=== PATIENT | male | born 1940 | race African-American/Black ===

== ENCOUNTER → 2016-07-09 | Outpatient (CLI) | payer MEDICARE ==
[2016-07-12 09:13] LABS: ALANINE AMINOTRANSFERASE 18 U/L (21-72); ALBUMIN 3.3 g/dL (3.5-5.0); ALKALINE PHOSPHATASE 66 U/L (38-126); ANION GAP 10 (5-19); ASPARTATE AMINO TRANSFERASE 16 U/L (17-59); BILIRUBIN,TOTAL 0.8 mg/dL (0.2-1.3); BLOOD UREA NITROGEN 16 mg/dL (7-20); CALCIUM 8.8 mg/dL (8.4-10.2); CARBON DIOXIDE 30 mmol/L (22-30); CHLORIDE 101 mmol/L (98-107); CHOLESTEROL 114.05 mg/dL (0-200); CREATININE RESULT 1.39 mg/dL (0.52-1.25); Direct HDL 64 mg/dL (>40); GLUCOSE 86 mg/dL (75-110); POTASSIUM 4.6 mmol/L (3.6-5.0); SODIUM 140.9 mmol/L (137-145); TOTAL PROTEIN 6.6 g/dL (6.3-8.2); TRIGLYCERIDES 56 mg/dL (<150)
[2016-07-12 09:27] LABS: DIRECT LDL < 30 mg/dL (<100)
== END ==
LOC: OD 09:38
PROVIDERS: ATTEND Physician Assistant Medical
DX: I10 Essential (primary) hypertension (principal); R06.02 Shortness of breath
CPT/HCPCS: 36415; 80053; 80061; 83880

== ENCOUNTER → 2016-07-26 | Outpatient (CLI) | payer MEDICARE ==
[2016-07-26 08:26] LABS: APPEARANCE,URINE CLOUDY; BILIRUBIN,URINE NEGATIVE (NEGATIVE); GLUCOSE, URINE NEGATIVE (NEGATIVE); KETONES,URINE NEGATIVE (NEGATIVE); LEUKOCYTE ESTERASE,URINE LARGE (NEGATIVE); NITRITE,URINE POSITIVE (NEGATIVE); PROTEIN,URINE 100 mg/dL (NEGATIVE); URINE SPECIFIC GRAVITY 1.009; UROBILINOGEN,URINE NEGATIVE mg/dL (<2.0)
[2016-07-26 08:38] LABS: HEMATOCRIT 45.7 % (37.9-51.0); HEMOGLOBIN 14.5 g/dL (13.5-17.0); HGB HCT DIFFERENCE -2.2; MEAN CORPUSCULAR HGB CONC 31.7 g/dL (32.0-36.0); MEAN CORPUSCULAR VOLUME 85 fl (80-97); RED BLOOD COUNT 5.37 10^6/uL (4.35-5.55); RED CELL DISTRIBUTION WIDTH 15.9 % (11.5-14.0); WHITE BLOOD COUNT 9.4 10^3/uL (4.0-10.5)
[2016-07-26 09:06] LABS: ANION GAP 11 (5-19); BLOOD UREA NITROGEN 15 mg/dL (7-20); CALCIUM 9.3 mg/dL (8.4-10.2); CARBON DIOXIDE 30 mmol/L (22-30); CHLORIDE 102 mmol/L (98-107); POTASSIUM 4.8 mmol/L (3.6-5.0); SODIUM 142.7 mmol/L (137-145)
[2016-07-26 09:08] LABS: GLUCOSE 82 mg/dL (75-110)
== END ==
LOC: OD 07:06
PROVIDERS: ATTEND Internal Medicine Nephrology
DX: I12.9 Hypertensive chronic kidney disease with stage 1 through stage 4 chronic kidney disease, or unspecified chronic kidney disease (principal); N18.3 Chronic kidney disease, stage 3 (moderate); I50.9 Heart failure, unspecified; R80.9 Proteinuria, unspecified; N39.0 Urinary tract infection, site not specified
CPT/HCPCS: 36415; 80048; 81001; 85027; 87086; 87088; 87186

== ENCOUNTER → 2016-09-13 | Outpatient (CLI) | payer MEDICARE | LOC: RAD 10:54 | PROVIDERS: ATTEND Family Medicine Geriatric Medicine | DX: J44.1 Chronic obstructive pulmonary disease with (acute) exacerbation (principal) | CPT/HCPCS: 71020 ==

== ENCOUNTER 2016-09-21 21:02 | Inpatient (IN) | payer MEDICARE ==
--- NOTE | 2016-09-21 21:10 | ER Document Report ---
ED Respiratory Problem - General Stated Complaint: DIFFICULTY BREATHING Time seen by provider: 21:10 Mode of Arrival: Medic Information source: Emergency Med Personnel TRAVEL OUTSIDE OF THE [place] IN LAST 30 DAYS: No - HPI Patient complains to provider of: Short of breath Onset: This evening Duration: Worse/persistent Quality of pain: No pain Severity: Severe Context: Hx COPD Short of Breath: Severe Chest pain/discomfort: Tightness Cough: Nonproductive EMS treatments: Bronchodilators, CPAP, Solumedrol Associated symptoms: Congestion, Cough, Difficulty breathing, Short of breath, Wheezing Similar symptoms previously: Yes Recently seen / treated by doctor: Yes Notes: Patient is a 76-year-old male who presents to the emergency room via EMS with respiratory distress that worsen, when EMS arrived patient was in distress, they placed him on Z-Brian and administered 2 albuterol treatments and IV Solu- Medrol, upon arrival patient reports feeling much better, he does report that he 's had difficulty breathing with shortness of breath over the past 2 weeks, he was recently evaluated by his primary care provider for this and his Lasix was increased from 40 mg once a day to 40 mg twice a day, which patient has been doing for the past few days, he denies a fever, denies chest pain, denies productive cough - Related Data Allergies/Adverse Reactions: No Known Allergies Allergy (Verified 05/08/15 11:11) Past Medical History - General Information source: Patient - Social History Smoking Status: Unknown if Ever Smoked Family History: Reviewed & Not Pertinent - Past Medical History Cardiac Medical History: Reports: Hx Congestive Heart Failure, Hx Coronary Artery Disease, Hx Heart Attack, Hx Hypercholesterolemia, Hx Hypertension Pulmonary Medical History: Denies: Hx Asthma, Hx Bronchitis, Hx COPD, Hx Pneumonia Neurological Medical History: Denies: Hx Cerebrovascular Accident, Hx Seizures Musculoskeltal Medical History: Denies Hx Arthritis Psychiatric Medical History: Denies: Hx Depression - Immunizations Hx Diphtheria, Pertussis, Tetanus Vaccination: Yes Review of Systems - Review of Systems Constitutional: No symptoms reported EENT: No symptoms reported Cardiovascular: See HPI Respiratory: See HPI Gastrointestinal: No symptoms reported Genitourinary: No symptoms reported Male Genitourinary: No symptoms reported Musculoskeletal: No symptoms reported Skin: No symptoms reported Hematologic/Lymphatic: No symptoms reported Neurological/Psychological: No symptoms reported -: Yes All other systems reviewed and negative Physical Exam - Vital signs Vitals: Resp Pulse Ox 22 H 99 09/21/16 21:04 09/21/16 21:04 Interpretation: Normal - General General appearance: Appears well, Alert - HEENT Head: Normocephalic, Atraumatic Eyes: Normal Pupils: PERRL - Respiratory Respiratory status: No respiratory distress Chest status: Nontender Breath sounds: Normal Chest palpation: Normal - Cardiovascular Rhythm: Regular Heart sounds: Normal auscultation Murmur: No - Abdominal Inspection: Normal Distension: No distension Bowel sounds: Normal Tenderness: Nontender Organomegaly: No organomegaly - Back Back: Normal, Nontender - Extremities General upper extremity: Normal inspection, Nontender, Normal color, Normal ROM , Normal temperature General lower extremity: Normal inspection, Nontender, Normal color, Normal ROM , Normal temperature, Normal weight bearing. No: Amy's sign - Neurological Neuro grossly intact: Yes Cognition: Normal Orientation: AAOx4 [place] Coma Scale Eye Opening: Spontaneous [place] Coma Scale Verbal: Oriented [place] Coma Scale Motor: Obeys Commands [place] Coma Scale Total: 15 Speech: Normal Motor strength normal: LUE, RUE, LLE, RLE Sensory: Normal - Psychological Associated symptoms: Normal affect, Normal mood - Skin Skin Temperature: Warm Skin Moisture: Dry Skin Color: Normal Course - Re-evaluation Re-evalutation: 09/22/16 04:[address] via EMS, however when that was removed his lungs were clear to auscultation any reported feeling much better, he was placed on 2 L of oxygen via nasal cannula and placed on the monitor, evaluation in the emergency room is consistent with bilateral pneumonia as patient has leukocytosis and difficulty breathing, findings suggestive of pneumonia on imaging, therefore he was discussed with the hospitalist who agrees to admit for further evaluation and treatment - Vital Signs Vital signs: Temp Pulse Resp BP Pulse Ox 97.3 F 82 16 99/76 L 95 09/22/16 01:47 09/22/16 02:29 09/22/16 02:29 09/22/16 01:47 09/22/16 02:29 - Laboratory Result Diagrams: 09/22/16 03:37 09/22/16 03:37 Laboratory results interpreted by me: 09/21/16 09/21/16 09/21/16 21:10 21:10 21:10 WBC 19.2 H MCH 26.6 L RDW 15.4 H Seg Neutrophils % 84.2 H Lymphocytes % 5.5 L Absolute Neutrophils 16.2 H Absolute Monocytes 1.9 H PT 17.0 H VBG pH Sodium 136.1 L Chloride 95 L Carbon Dioxide 32 H BUN 51 H Creatinine 1.65 H Est GFR ( Amer) 49 L Est GFR (Non-Af Amer) 41 L Glucose 159 H Direct Bilirubin 0.5 H NT-Pro-B Natriuret Pep Albumin 3.1 L 09/21/16 09/21/16 21:10 21:10 WBC MCH RDW Seg Neutrophils % Lymphocytes % Absolute Neutrophils Absolute Monocytes PT VBG pH 7.43 H Sodium Chloride Carbon Dioxide BUN Creatinine Est GFR ( Amer) Est GFR (Non-Af Amer) Glucose Direct Bilirubin NT-Pro-B Natriuret Pep 537 H Albumin - Diagnostic Test Radiology reviewed: Image reviewed, Reports reviewed - EKG Interpretation by Nj EKG shows normal: Sinus rhythm Rate: Normal Rhythm: NSR [place]/QRS: RBBB When compared to previous EKG there are: No significant change - Transfer of Care Care transferred to following provider: Dr. Maravilla Discharge - Discharge Clinical Impression: Pneumonia Qualifiers: Pneumonia type: due to unspecified organism Laterality: bilateral Lung location : lower lobe of lung Qualified Code(s): J18.9 - Pneumonia, unspecified organism Condition: Fair Disposition: ADMITTED INPATIENT Admitting Provider: Hospitalist Unit Admitted: Telemetry
[2016-09-21 21:20] LABS: ABSOLUTE BASOPHILS # (AUTO) 0.1 10^3/uL (0.0-0.2); ABSOLUTE LYMPHOCYTES (AUTO) 1.1 10^3/uL (0.5-4.7); ABSOLUTE MONOCYTES (AUTO) 1.9 10^3/uL (0.1-1.4); ABSOLUTE NEUT (AUTO) 16.2 10^3/uL (1.7-8.2); BASOPHILS % (AUTO) 0.3 % (0-2); EOSINOPHILS % (AUTO) 0.2 % (0-6); HEMATOCRIT 42.9 % (37.9-51.0); HEMOGLOBIN 13.9 g/dL (13.5-17.0); HGB HCT DIFFERENCE -1.2; LYMPHOCYTES % (AUTO) 5.5 % (13-45); MEAN CORPUSCULAR HEMOGLOBIN 26.6 pg (27.0-33.4); MEAN CORPUSCULAR HGB CONC 32.5 g/dL (32.0-36.0); MEAN CORPUSCULAR VOLUME 82 fl (80-97); MONOCYTES % (AUTO) 9.8 % (3-13); RED BLOOD COUNT 5.23 10^6/uL (4.35-5.55); RED CELL DISTRIBUTION WIDTH 15.4 % (11.5-14.0); SEGMENTED NEUTROPHILS % (AUTO) 84.2 % (42-78); WHITE BLOOD COUNT 19.2 10^3/uL (4.0-10.5)
[2016-09-21 21:22] LABS: VENOUS BLOOD BASE EXCESS 5.3 mmol/L; VENOUS BLOOD HCO3 30.5 mmol/L (20-32); VENOUS BLOOD PCO2 46.8 mmHg (35-63); VENOUS BLOOD PH 7.43 (7.30-7.42)
[2016-09-21 21:30] LABS: PARTIAL THROMBOPLASTIN TIME 31.6 SEC (23.5-35.8)
[2016-09-21 21:39] LABS: ALANINE AMINOTRANSFERASE 36 U/L (21-72); ALBUMIN 3.1 g/dL (3.5-5.0); ALKALINE PHOSPHATASE 71 U/L (38-126); ANION GAP 9 (5-19); ASPARTATE AMINO TRANSFERASE 24 U/L (17-59); BILIRUBIN,DIRECT 0.5 mg/dL (0.0-0.4); BILIRUBIN,TOTAL 1.3 mg/dL (0.2-1.3); BLOOD UREA NITROGEN 51 mg/dL (7-20); CALCIUM 8.8 mg/dL (8.4-10.2); CARBON DIOXIDE 32 mmol/L (22-30); CHLORIDE 95 mmol/L (98-107); CREATINE KINASE 72 U/L (55-170); CREATININE RESULT 1.65 mg/dL (0.52-1.25); GLUCOSE 159 mg/dL (75-110); POTASSIUM 4.6 mmol/L (3.6-5.0); SODIUM 136.1 mmol/L (137-145); TOTAL PROTEIN 6.3 g/dL (6.3-8.2)
[2016-09-21 21:51] LABS: CREATINE KINASE MB 1.17 ng/mL (<4.55)
[2016-09-21 21:55] LABS: TROPONIN I 0.035 ng/mL
[2016-09-21] MEDS ORDERED: NORMAL SALINE 1000 ML 500 ML IV PRN ×2 (22:05→22:31)
[2016-09-21] MEDS ORDERED: AZITHROMYCIN INJ 500 MG VIAL IV ONE (22:22)
[2016-09-21] MEDS ORDERED: CEFTRIAXONE RTU 1 GM/D5W 50 ML IV ONE (22:22)
[2016-09-21] MEDS ORDERED: ZOLPIDEM TARTRATE 5 MG TABLET PO PRN (22:38)
[2016-09-21] MEDS ORDERED: CETIRIZINE 10 MG TABLET PO PRN (22:38)
[2016-09-21] MEDS ORDERED: ACETAMINOPHEN 325 MG TABLET PO PRN (22:40)
[2016-09-21] MEDS ORDERED: GUAIFENESIN SYRP 200 MG/10 ML UDC PO PRN (22:40)
[2016-09-21] MEDS ORDERED: NORMAL SALINE 1000 ML 1,000 ML IV ONE (22:44)
[2016-09-21] MEDS ORDERED: ATORVASTATIN CALCIUM 10 MG TABLET PO ONE (23:30)
--- NOTE | 2016-09-21 23:30 | EKG REPORT ---
SEVERITY:- ABNORMAL ECG - SINUS RHYTHM RIGHT BUNDLE BRANCH BLOCK : Confirmed by: Vashti Crabtree 21-Sep-2016 23:29:33
[2016-09-22] MEDS ORDERED: NORMAL SALINE 1000 ML 1,000 ML IV ONE
[2016-09-22] MEDS: AZITHROMYCIN 500 MG in DEXTROSE 5%-WATER 250 ML IV SCH (00:15)
[2016-09-22] MEDS: IPRATROPIUM/ALBUTEROL 0.5-2.5 MG/3 ML AMPUL NEB PRN (02:05)
[2016-09-22 03:54] LABS: HEMATOCRIT 39.1 % (37.9-51.0); HEMOGLOBIN 12.5 g/dL (13.5-17.0); HGB HCT DIFFERENCE -1.6; MEAN CORPUSCULAR HEMOGLOBIN 26.6 pg (27.0-33.4); MEAN CORPUSCULAR HGB CONC 32.1 g/dL (32.0-36.0); MEAN CORPUSCULAR VOLUME 83 fl (80-97); RED BLOOD COUNT 4.73 10^6/uL (4.35-5.55); RED CELL DISTRIBUTION WIDTH 15.8 % (11.5-14.0); WHITE BLOOD COUNT 16.4 10^3/uL (4.0-10.5)
[2016-09-22 04:02] LABS: ANION GAP 11 (5-19); BLOOD UREA NITROGEN 47 mg/dL (7-20); CALCIUM 8.1 mg/dL (8.4-10.2); CARBON DIOXIDE 27 mmol/L (22-30); CHLORIDE 102 mmol/L (98-107); CREATINE KINASE 82 U/L (55-170); CREATININE RESULT 1.42 mg/dL (0.52-1.25); GLUCOSE 165 mg/dL (75-110); POTASSIUM 4.3 mmol/L (3.6-5.0); SODIUM 139.7 mmol/L (137-145)
[2016-09-22 04:12] LABS: BASOPHILS % (MANUAL) 0 % (0-2); EOSINOPHILS % (MANUAL) 0 % (0-6); LYMPHOCYTES % (MANUAL) 4 % (13-45); TOTAL CELLS COUNTED 100
[2016-09-22 04:13] LABS: ANISOCYTOSIS 1+; CREATINE KINASE MB 2.04 ng/mL (<4.55); OVALOCYTES SLIGHT; POIKILOCYTOSIS SLIGHT; TROPONIN I 0.029 ng/mL
--- NOTE | 2016-09-22 04:24 | PDOC H&P ---
History of Present Illness Admission Date/PCP: 09/21/16 22:40 AUGUSTIN COVARRUBIAS, Patient complains of: Shortness of breath and cough History of Present Illness: RACHEL MOSQUERA is a 76 year old male with a past medical history of congestive heart failure with an ejection fraction of 45%, hypertension, stage III chronic kidney disease, dyslipidemia hypertension and COPD with Tobacco Dependence, who is been in his usual state of health until approximately 10 days ago noting to have shortness of breath with a nonproductive cough which has progressed prompting him to seek evaluation emergency room. He denies sinus congestion, sore throat, aspiration or infectious contacts. Denies any recent antibiotic use. In the emergency room he's found to have hypotension, tachycardia and leukocytosis of 19,000 with a chest x-ray with bilateral lower lobe infiltrates he started on empiric antibiotics referred to the hospitalist for admission. Past Medical History Cardiac Medical History: Reports: Congestive Heart Failure, Coronary Artery Disease, Myocardial Infarction, Hyperlipidema, Hypertension Pulmonary Medical History: Reports: Chronic Obstructive Pulmonary Disease (COPD) Denies: Asthma, Bronchitis, Pneumonia Neurological Medical History: Denies: Seizures Renal/ Medical History: Reports: Chronic Kidney Disease Musculoskeltal Medical History: Denies: Arthritis Psychiatric Medical History: Reports: Tobacco Dependency Denies: Depression Hematology: Denies: Anemia Social History Information Source: Patient Smoking Status: Current Some Day Smoker Frequency of Alcohol Use: None Hx Recreational Drug Use: No Hx Prescription Drug Abuse: No - Advance Directive Resuscitation Status: Full Code Family History Family History: COPD Parental Family History Reviewed: Yes Children Family History Reviewed: Yes Sibling(s) Family History Reviewed.: Yes Medication/Allergy Home Medications: Atorvastatin Calcium [Lipitor] 10 mg PO DAILY 10/05/14 Budesonide/Formoterol Fumarate [Symbicort HFA 160-4.5 mcg Inhaler 6 gm] 2 puff IH BID 05/08/15 Cetirizine HCl [All Day Allergy] 10 mg PO DAILYP PRN 05/08/15 Ipratropium/Albuterol Sulfate [Iprat-Albut 0.5-3(2.5) mg/3 ml] 3 ml IH QID 05/08 Losartan Potassium 100 mg PO QHS 05/08/15 Ascorbic Acid [Vitamin C 500 mg Tablet] 1,000 mg PO DAILY 11/03/15 Cholecalciferol (Vitamin D3) [Vitamin D3] 50,000 units PO Q7D 11/03/15 Docusate Sodium [Colace 100 mg Capsule] 100 mg PO DAILYP PRN 11/03/15 Furosemide [Lasix 40 mg Tablet] 40 mg PO DAILY 11/03/15 Omeprazole 40 mg PO DAILY 11/03/15 Tiotropium [place]omet [Spiriva Handihaler 18 mcg/dose (30 Dose)] 1 cap IH DAILY 03/12 Zolpidem Tartrate [Ambien 5 mg Tablet] 5 mg PO QHS 11/03/15 Aspirin [Ecotrin 81 mg EC Tablet] 81 mg PO DAILY #0 tabec 11/07/15 Atorvastatin Calcium [Lipitor 10 mg Tablet] 10 mg PO QHS #0 tablet 11/07/15 Budesonide/Formoterol Fumarate [Symbicort HFA 160-4.5 mcg Inhaler 6 gm] 2 puff IH Q12 #0 inhaler 11/07/15 Carvedilol [Coreg 12.5 mg Tablet] 12.5 mg PO Q12 #0 tablet 11/07/15 Docusate Sodium [Colace 100 mg Capsule] 100 mg PO DAILY #0 capsule 11/07/15 Furosemide [Lasix 40 mg Tablet] 40 mg PO DAILY #0 tablet 11/07/15 Losartan Potassium [Cozaar 50 mg Tablet] 100 mg PO DAILY #0 tablet 11/07/15 Spironolactone [Aldactone 25 mg Tablet] 25 mg PO DAILY #0 tablet 11/07/15 Tiotropium [place] [Spiriva Handihaler 5 Cap/Kit (18 Mcg/Cap)] 1 cap IH DAILY # 0 kit 11/07/15 Zolpidem Tartrate [Ambien 5 mg Tablet] 10 mg PO QHS #0 tablet 11/07/15 Allergies/Adverse Reactions: No Known Allergies Allergy (Verified 05/08/15 11:11) Review of Systems Constitutional: PRESENT: chills, fatigue, fever(s) Eyes: ABSENT: visual disturbances Ears: ABSENT: hearing changes Cardiovascular: ABSENT: chest pain, dyspnea on exertion, edema, orthropnea, palpitations Respiratory: PRESENT: cough, dyspnea, sputum Gastrointestinal: ABSENT: abdominal pain, constipation, diarrhea, hematemesis, hematochezia, nausea, vomiting Genitourinary: ABSENT: dysuria, hematuria Musculoskeletal: ABSENT: joint swelling Integumentary: ABSENT: rash, wounds Neurological: ABSENT: abnormal gait, abnormal speech, confusion, dizziness, focal weakness, syncope Psychiatric: ABSENT: anxiety, depression, homidical ideation, suicidal ideation Endocrine: ABSENT: cold intolerance, heat intolerance, polydipsia, polyuria Hematologic/Lymphatic: ABSENT: easy bleeding, easy bruising Physical Exam Vital Signs: Temp Pulse Resp BP Pulse Ox 97.3 F 82 16 99/76 L 95 09/22/16 01:47 09/22/16 02:29 09/22/16 02:29 09/22/16 01:47 09/22/16 02:29 Intake & Output 09/20/16 09/21/16 09/22/16 11:59 11:59 11:59 Intake Total 1550 Output Total 250 Balance 1300 General appearance: PRESENT: cooperative, mild distress, thin Head exam: PRESENT: atraumatic, normocephalic Eye exam: PRESENT: conjunctiva pink, EOMI, PERRLA. ABSENT: scleral icterus Ear exam: PRESENT: normal external ear exam Mouth exam: PRESENT: moist, tongue midline Neck exam: ABSENT: carotid bruit, JVD, lymphadenopathy, thyromegaly Respiratory exam: PRESENT: accessory muscle use, crackles, prolonged expiratory phas, rhonchi, symmetrical, tachypnea. ABSENT: wheezes Cardiovascular exam: PRESENT: RRR. ABSENT: diastolic murmur, rubs, systolic murmur Pulses: PRESENT: normal dorsalis pedis pul Vascular exam: PRESENT: normal capillary refill GI/Abdominal exam: PRESENT: normal bowel sounds, soft. ABSENT: distended, guarding, mass, organolmegaly, rebound, tenderness Rectal exam: PRESENT: deferred Extremities exam: PRESENT: full ROM. ABSENT: calf tenderness, clubbing, pedal edema Neurological exam: PRESENT: alert, awake, oriented to person, oriented to place , oriented to time, oriented to situation, CN II-XII grossly intact. ABSENT: motor sensory deficit Psychiatric exam: PRESENT: appropriate affect, normal mood. ABSENT: homicidal ideation, suicidal ideation Skin exam: PRESENT: dry, intact, warm. ABSENT: cyanosis, rash Results Laboratory Results: 09/22/16 03:37 09/22/16 03:37 WBC 16.4 H RBC 4.73 Hgb 12.5 L Hct 39.1 MCV 83 MCH 26.6 L MCHC 32.1 RDW 15.8 H Plt Count 168 Seg Neutrophils % Not Reportable Lymphocytes % Not Reportable Monocytes % Not Reportable Eosinophils % Not Reportable Basophils % Not Reportable Absolute Neutrophils Not Reportable Absolute Lymphocytes Not Reportable Absolute Monocytes Not Reportable Absolute Eosinophils Not Reportable Absolute Basophils Not Reportable Impressions: Chest X-Ray 09/21/16 21:07 IMPRESSION: Bibasilar interstitial airspace disease most likely early edema. Pneumonia is thought to be less likely but not excluded. Assessment & Plan - Diagnosis (1) Pneumonia Qualifiers: Pneumonia type: due to unspecified organism Laterality: bilateral Lung location: lower lobe of lung Qualified Code(s): J18.9 - Pneumonia, unspecified organism Is this a current diagnosis for this admission?: YesPlan: Pneumonia care set, incentive spirometry empiric antibiotics, albuterol and Atrovent following blood and sputum cultures with follow-up labs (2) COPD (chronic obstructive pulmonary disease) Qualifiers: Emphysema type: unspecified Is this a current diagnosis for this admission?: YesPlan: Albuterol and Atrovent, incentive spirometry and flutter valve (3) Chronic kidney disease (CKD) Qualifiers: Chronic kidney disease stage: stage 3 (moderate) Qualified Code(s): N18.3 - Chronic kidney disease, stage 3 (moderate) Is this a current diagnosis for this admission?: YesPlan: Avoid nephrotoxic meds and doses IV fluid challenge for hypotension and sepsis reevaluate labs (4) Congestive heart failure Qualifiers: Congestive heart failure type: systolic Congestive heart failure chronicity: acute on chronic Qualified Code(s): I50.23 - Acute on chronic systolic (congestive) heart failure Is this a current diagnosis for this admission?: YesPlan: Careful fluid resuscitation given history of congestive heart failure (5) Sepsis Is this a current diagnosis for this admission?: YesPlan: Secondary to #1 continue IV fluid challenge as tolerated consider pressors when necessary - Time Time Spent: 30 to 50 Minutes - Inpatient Certification Medical Necessity: Need Close Monitoring Due to Risk of Patient Decompensation
[2016-09-22] MEDS: HEPARIN SOD (PORCINE) 5,000 UNIT/ML 1 ML SYRINGE SUBCUT SCH ×3 (07:48→22:56)
[2016-09-22] MEDS ORDERED: BUDESONIDE/FORMOTEROL 160-4.5 MCG 60 PUFF/6 GM MDI IH SCH (08:00)
[2016-09-22] MEDS ORDERED: TIOTROPIUM BROMIDE DPI 5 CAP/KIT (18 MCG/CAP) IH SCH (08:00)
[2016-09-22] MEDS: CARVEDILOL 12.5 MG TABLET PO SCH ×2 (09:48→22:57)
[2016-09-22] MEDS: LOSARTAN POTASSIUM 50 MG TABLET PO SCH (09:49)
[2016-09-22] MEDS: GUAIFENESIN 600 MG TABLET.SA PO SCH ×2 (10:02→22:50)
[2016-09-22] MEDS: ASPIRIN 81 MG TABLET, ENT COATED PO SCH (10:03)
[2016-09-22] MEDS: DOCUSATE SODIUM 100 MG CAPSULE PO SCH (10:03)
[2016-09-22] MEDS: ASCORBIC ACID 500 MG TABLET PO SCH (10:03)
[2016-09-22] MEDS: TIOTROPIUM BROMIDE DPI 5 CAP/KIT (18 MCG/CAP) IH SCH (10:05)
[2016-09-22] MEDS: BUDESONIDE/FORMOTEROL 160-4.5 MCG 60 PUFF/6 GM MDI IH SCH ×2 (10:05→22:52)
[2016-09-22 11:21] LABS: CREATINE KINASE MB 2.56 ng/mL (<4.55); TROPONIN I 0.019 ng/mL
--- NOTE | 2016-09-22 13:46 | PDOC PROGRESS REPORT ---
Subjective Progress Note for:: 09/22/16 Subjective:: Patient seen on morning rounds. He is presently standing the mirror shaving. He denies any significant shortness of breath, dyspnea or chest discomfort. He continues to have productive cough, raising thick purulent sputum. He denies fever or chills. He denies any nausea, abdominal pain, or diarrhea. Rest of review of systems is negative. Physical Exam Vital Signs: Temp Pulse Resp BP Pulse Ox 97.4 F 77 20 104/77 93 09/22/16 12:23 09/22/16 12:23 09/22/16 12:23 09/22/16 12:23 09/22/16 12:23 Intake & Output 09/21/16 09/22/16 09/23/16 06:59 06:59 06:59 Intake Total 1925 Output Total 250 Balance 1675 Weight 68.4 kg General appearance: PRESENT: no acute distress, well-developed, well-nourished Head exam: PRESENT: atraumatic, normocephalic Eye exam: PRESENT: conjunctiva pink, EOMI, PERRLA. ABSENT: scleral icterus Ear exam: PRESENT: normal external ear exam Mouth exam: PRESENT: moist, tongue midline Neck exam: ABSENT: carotid bruit, JVD, lymphadenopathy, thyromegaly Respiratory exam: PRESENT: rales, symmetrical, unlabored - bilateral bases Cardiovascular exam: PRESENT: RRR. ABSENT: diastolic murmur, rubs, systolic murmur Pulses: PRESENT: normal dorsalis pedis pul Vascular exam: PRESENT: normal capillary refill GI/Abdominal exam: PRESENT: normal bowel sounds, soft. ABSENT: distended, guarding, mass, organolmegaly, rebound, tenderness Rectal exam: PRESENT: deferred Extremities exam: PRESENT: full ROM. ABSENT: calf tenderness, clubbing, pedal edema Musculoskeletal exam: PRESENT: ambulatory Neurological exam: PRESENT: alert, awake, oriented to person, oriented to place , oriented to time, oriented to situation, CN II-XII grossly intact. ABSENT: motor sensory deficit Psychiatric exam: PRESENT: appropriate affect, normal mood. ABSENT: homicidal ideation, suicidal ideation Skin exam: PRESENT: dry, intact, warm. ABSENT: cyanosis, rash Results Laboratory Results: 09/22/16 03:37 09/22/16 03:37 09/22/16 09/22/16 03:37 03:37 WBC 16.4 H RBC 4.73 Hgb 12.5 L Hct 39.1 MCV 83 MCH 26.6 L MCHC 32.1 RDW 15.8 H Plt Count 168 Seg Neutrophils % Not Reportable Lymphocytes % Not Reportable Monocytes % Not Reportable Eosinophils % Not Reportable Basophils % Not Reportable Absolute Neutrophils Not Reportable Absolute Lymphocytes Not Reportable Absolute Monocytes Not Reportable Absolute Eosinophils Not Reportable Absolute Basophils Not Reportable Sodium 139.7 Potassium 4.3 Chloride 102 Carbon Dioxide 27 Anion Gap 11 BUN 47 H Creatinine 1.42 H Est GFR ( Amer) 58 L Est GFR (Non-Af Amer) 48 L Glucose 165 H Calcium 8.1 L 09/22/16 09/22/16 09/22/16 03:37 03:37 10:22 Creatine Kinase 82 84 CK-MB (CK-2) 2.04 Troponin I 0.029 09/22/16 10:22 Creatine Kinase CK-MB (CK-2) 2.56 Troponin I 0.019 Impressions: Chest X-Ray 09/21/16 21:07 IMPRESSION: Bibasilar interstitial airspace disease most likely early edema. Pneumonia is thought to be less likely but not excluded. Assessment & Plan - Diagnosis (1) Pneumonia Qualifiers: Pneumonia type: due to unspecified organism Laterality: bilateral Lung location: lower lobe of lung Qualified Code(s): J18.9 - Pneumonia, unspecified organism Is this a current diagnosis for this admission?: YesPlan: Sputum culture is pending. Started on empiric antibiotics, nebulizers and steroids (2) Sepsis Is this a current diagnosis for this admission?: YesPlan: He was hypotensive requiring 3 liters of fluid. He is now improvedPatient is not tachycardic, hypotensive or febrile at the present time (3) COPD (chronic obstructive pulmonary disease) Qualifiers: Emphysema type: unspecified Is this a current diagnosis for this admission?: YesPlan: Continue inhalers, nebulizers and oxygen. (4) Chronic kidney disease (CKD) Qualifiers: Chronic kidney disease stage: stage 3 (moderate) Qualified Code(s): N18.3 - Chronic kidney disease, stage 3 (moderate) Is this a current diagnosis for this admission?: YesPlan: Avoid nephrotoxic medications, and dosages. (5) Hypertension Qualifiers: Hypertension type: essential hypertension Qualified Code(s): I10 - Essential (primary) hypertension Is this a current diagnosis for this admission?: YesPlan: Continue to hold antihypertensives until pressure normalizes. (6) Chronic systolic CHF (congestive heart failure), NYHA class 3 Is this a current diagnosis for this admission?: YesPlan: Patient with an EF of 20-25% on most recent echo. He appears euvloemic at the present time. Will continue to monitor - Time Time Spent with patient: 25-34 minutes Critical Time spent with patient: 15-24 minutes Medications reviewed and adjusted accordingly: Yes
[2016-09-22] MEDS: FUROSEMIDE 40 MG TABLET PO SCH (16:31)
[2016-09-22 16:33] LABS: CREATINE KINASE MB 2.74 ng/mL (<4.55); TROPONIN I 0.017 ng/mL
[2016-09-22] MEDS: CEFTRIAXONE 1 GM/D5W RTU 1 GM/50 ML RTUPB IV SCH (17:37)
[2016-09-22] MEDS: ATORVASTATIN CALCIUM 10 MG TABLET PO SCH (22:50)
[2016-09-23] MEDS: HEPARIN SOD (PORCINE) 5,000 UNIT/ML 1 ML SYRINGE SUBCUT SCH ×3 (06:28→22:17)
[2016-09-23] MEDS: ASCORBIC ACID 500 MG TABLET PO SCH (10:53)
[2016-09-23] MEDS: GUAIFENESIN 600 MG TABLET.SA PO SCH ×2 (10:53→22:17)
[2016-09-23] MEDS: FUROSEMIDE 40 MG TABLET PO SCH (10:54)
[2016-09-23] MEDS: ASPIRIN 81 MG TABLET, ENT COATED PO SCH (10:54)
[2016-09-23] MEDS: CARVEDILOL 12.5 MG TABLET PO SCH ×2 (10:54→22:16)
[2016-09-23] MEDS: LOSARTAN POTASSIUM 50 MG TABLET PO SCH (10:56)
[2016-09-23] MEDS: DOCUSATE SODIUM 100 MG CAPSULE PO SCH (10:56)
[2016-09-23] MEDS: TIOTROPIUM BROMIDE DPI 5 CAP/KIT (18 MCG/CAP) IH SCH (11:01)
[2016-09-23] MEDS: BUDESONIDE/FORMOTEROL 160-4.5 MCG 60 PUFF/6 GM MDI IH SCH ×2 (11:05→22:16)
--- NOTE | 2016-09-23 11:50 | PDOC PROGRESS REPORT ---
Subjective Progress Note for:: 09/23/16 Subjective:: Patient seen on morning rounds. He is presently standing the mirror shaving. He denies any significant shortness of breath, dyspnea or chest discomfort. He continues to have productive cough, raising thick purulent sputum. He denies fever or chills. He denies any nausea, abdominal pain, or diarrhea. Rest of review of systems is negative. Physical Exam Vital Signs: Temp Pulse Resp BP Pulse Ox 97.5 F 63 20 132/89 H 97 09/23/16 07:39 09/23/16 07:39 09/23/16 07:39 09/23/16 07:39 09/23/16 07:39 Intake & Output 09/22/16 09/23/16 09/24/16 06:59 06:59 06:59 Intake Total 1925 1044 Output Total 250 Balance 1675 1044 Weight 68.4 kg 76.9 kg 76.9 kg General appearance: PRESENT: no acute distress, well-developed, well-nourished Head exam: PRESENT: atraumatic, normocephalic Eye exam: PRESENT: conjunctiva pink, EOMI, PERRLA. ABSENT: scleral icterus Ear exam: PRESENT: normal external ear exam Mouth exam: PRESENT: moist, tongue midline Neck exam: ABSENT: carotid bruit, JVD, lymphadenopathy, thyromegaly Respiratory exam: PRESENT: clear to auscultation krys. ABSENT: rales, rhonchi, wheezes Cardiovascular exam: PRESENT: RRR. ABSENT: diastolic murmur, rubs, systolic murmur Pulses: PRESENT: normal dorsalis pedis pul Vascular exam: PRESENT: normal capillary refill GI/Abdominal exam: PRESENT: normal bowel sounds, soft. ABSENT: distended, guarding, mass, organolmegaly, rebound, tenderness Rectal exam: PRESENT: deferred Extremities exam: PRESENT: full ROM. ABSENT: calf tenderness, clubbing, pedal edema Neurological exam: PRESENT: alert, awake, oriented to person, oriented to place , oriented to time, oriented to situation, CN II-XII grossly intact. ABSENT: motor sensory deficit Psychiatric exam: PRESENT: appropriate affect, normal mood. ABSENT: homicidal ideation, suicidal ideation Skin exam: PRESENT: dry, intact, warm. ABSENT: cyanosis, rash Results Laboratory Results: 09/22/16 03:37 09/22/16 03:37 09/22/16 09/22/16 09/22/16 03:37 03:37 10:22 Creatine Kinase 82 84 CK-MB (CK-2) 2.04 Troponin I 0.029 09/22/16 09/22/16 09/22/16 10:22 15:30 15:30 Creatine Kinase 73 CK-MB (CK-2) 2.56 2.74 Troponin I 0.019 0.017 Impressions: Chest X-Ray 09/21/16 21:07 IMPRESSION: Bibasilar interstitial airspace disease most likely early edema. Pneumonia is thought to be less likely but not excluded. Assessment & Plan - Diagnosis (1) Pneumonia Qualifiers: Pneumonia type: due to unspecified organism Laterality: bilateral Lung location: lower lobe of lung Qualified Code(s): J18.9 - Pneumonia, unspecified organism Is this a current diagnosis for this admission?: YesPlan: Sputum culture is pending. Started on empiric antibiotics, nebulizers and steroids (2) Sepsis Is this a current diagnosis for this admission?: YesPlan: He was hypotensive requiring 3 liters of fluid. He is now improvedPatient is not tachycardic, hypotensive or febrile at the present time (3) COPD (chronic obstructive pulmonary disease) Qualifiers: Emphysema type: unspecified Is this a current diagnosis for this admission?: YesPlan: Continue inhalers, nebulizers and oxygen. (4) Chronic kidney disease (CKD) Qualifiers: Chronic kidney disease stage: stage 3 (moderate) Qualified Code(s): N18.3 - Chronic kidney disease, stage 3 (moderate) Is this a current diagnosis for this admission?: YesPlan: Avoid nephrotoxic medications, and dosages. (5) Hypertension Qualifiers: Hypertension type: essential hypertension Qualified Code(s): I10 - Essential (primary) hypertension Is this a current diagnosis for this admission?: YesPlan: Continue to hold antihypertensives until pressure normalizes. (6) Chronic systolic CHF (congestive heart failure), NYHA class 3 Is this a current diagnosis for this admission?: YesPlan: Patient with an EF of 20-25% on most recent echo. He appears euvloemic at the present time. Will continue to monitor - Time Time Spent with patient: 25-34 minutes Critical Time spent with patient: 15-24 minutes Smoking Cessation Education: 3 to 10 minutes Medications reviewed and adjusted accordingly: Yes Anticipated discharge: Home with Homehealth
[2016-09-23] MEDS: IPRATROPIUM/ALBUTEROL 0.5-2.5 MG/3 ML AMPUL NEB PRN ×2 (12:31→17:28)
[2016-09-23] MEDS: CEFTRIAXONE 1 GM/D5W RTU 1 GM/50 ML RTUPB IV SCH (17:17)
[2016-09-23] MEDS: AZITHROMYCIN 500 MG in DEXTROSE 5%-WATER 250 ML IV SCH (22:15)
[2016-09-23] MEDS: ATORVASTATIN CALCIUM 10 MG TABLET PO SCH (22:16)
[2016-09-24 04:35] LABS: BLOOD UREA NITROGEN 38 mg/dL (7-20); CALCIUM 8.5 mg/dL (8.4-10.2); CARBON DIOXIDE 28 mmol/L (22-30); CHLORIDE 101 mmol/L (98-107); CREATININE RESULT 1.17 mg/dL (0.52-1.25); GLUCOSE 99 mg/dL (75-110); POTASSIUM 4.2 mmol/L (3.6-5.0); SODIUM 139.2 mmol/L (137-145)
[2016-09-24 04:36] LABS: ANION GAP 10 (5-19)
[2016-09-24 04:37] LABS: ABSOLUTE EOSINOPHILS # (AUTO) 0.1 10^3/uL (0.0-0.6); ABSOLUTE LYMPHOCYTES (AUTO) 1.7 10^3/uL (0.5-4.7); ABSOLUTE MONOCYTES (AUTO) 1.5 10^3/uL (0.1-1.4); ABSOLUTE NEUT (AUTO) 10.9 10^3/uL (1.7-8.2); BASOPHILS % (AUTO) 0.1 % (0-2); EOSINOPHILS % (AUTO) 0.4 % (0-6); HEMATOCRIT 39.3 % (37.9-51.0); HEMOGLOBIN 12.6 g/dL (13.5-17.0); HGB HCT DIFFERENCE -1.5; LYMPHOCYTES % (AUTO) 11.9 % (13-45); MEAN CORPUSCULAR HEMOGLOBIN 26.4 pg (27.0-33.4); MEAN CORPUSCULAR HGB CONC 32.1 g/dL (32.0-36.0); MEAN CORPUSCULAR VOLUME 82 fl (80-97); MONOCYTES % (AUTO) 10.3 % (3-13); RED BLOOD COUNT 4.78 10^6/uL (4.35-5.55); RED CELL DISTRIBUTION WIDTH 15.7 % (11.5-14.0); SEGMENTED NEUTROPHILS % (AUTO) 77.3 % (42-78); WHITE BLOOD COUNT 14.1 10^3/uL (4.0-10.5)
[2016-09-24] MEDS: HEPARIN SOD (PORCINE) 5,000 UNIT/ML 1 ML SYRINGE SUBCUT SCH ×3 (06:55→22:29)
[2016-09-24] MEDS: IPRATROPIUM/ALBUTEROL 0.5-2.5 MG/3 ML AMPUL NEB PRN ×3 (08:11→19:55)
[2016-09-24] MEDS: LOSARTAN POTASSIUM 50 MG TABLET PO SCH (10:29)
[2016-09-24] MEDS: DOCUSATE SODIUM 100 MG CAPSULE PO SCH (10:36)
[2016-09-24] MEDS: GUAIFENESIN 600 MG TABLET.SA PO SCH ×2 (10:36→22:28)
[2016-09-24] MEDS: ASCORBIC ACID 500 MG TABLET PO SCH (10:36)
[2016-09-24] MEDS: FUROSEMIDE 40 MG TABLET PO SCH (10:37)
[2016-09-24] MEDS: BUDESONIDE/FORMOTEROL 160-4.5 MCG 60 PUFF/6 GM MDI IH SCH ×2 (10:37→22:28)
[2016-09-24] MEDS: CARVEDILOL 12.5 MG TABLET PO SCH ×2 (10:37→22:32)
[2016-09-24] MEDS: TIOTROPIUM BROMIDE DPI 5 CAP/KIT (18 MCG/CAP) IH SCH (10:38)
[2016-09-24] MEDS: ASPIRIN 81 MG TABLET, ENT COATED PO SCH (10:43)
--- NOTE | 2016-09-24 14:40 | PDOC PROGRESS REPORT ---
Subjective Progress Note for:: 09/24/16 Subjective:: Patient seen on morning rounds. He is presently resting out of bed in the bedside chair He denies any significant shortness of breath, dyspnea or chest discomfort. He does state dyspnea with exertion is improving. He continues to have productive cough, raising thick purulent sputum. He denies fever or chills. He denies any nausea, abdominal pain, or diarrhea. Rest of review of systems is negative. Physical Exam Vital Signs: Temp Pulse Resp BP Pulse Ox 97.6 F 76 18 121/91 H 95 09/24/16 08:00 09/24/16 08:18 09/24/16 08:18 09/24/16 08:00 09/24/16 08:18 Intake & Output 09/23/16 09/24/16 09/25/16 06:59 06:59 06:59 Intake Total 1044 1190 Balance 1044 1190 Weight 76.9 kg 75.8 kg General appearance: PRESENT: no acute distress, thin, well-developed Head exam: PRESENT: atraumatic, normocephalic Eye exam: PRESENT: conjunctival injection Ear exam: PRESENT: normal external ear exam Mouth exam: PRESENT: moist, tongue midline Neck exam: ABSENT: carotid bruit, JVD, lymphadenopathy, thyromegaly Respiratory exam: PRESENT: decreased breath sounds - both bases Cardiovascular exam: PRESENT: RRR. ABSENT: diastolic murmur, rubs, systolic murmur Pulses: PRESENT: normal dorsalis pedis pul Vascular exam: PRESENT: normal capillary refill GI/Abdominal exam: PRESENT: normal bowel sounds, soft. ABSENT: distended, guarding, mass, organolmegaly, rebound, tenderness Rectal exam: PRESENT: deferred Extremities exam: PRESENT: full ROM. ABSENT: calf tenderness, clubbing, pedal edema Musculoskeletal exam: PRESENT: ambulatory Neurological exam: PRESENT: alert, awake, oriented to person, oriented to place , oriented to time, oriented to situation, CN II-XII grossly intact. ABSENT: motor sensory deficit Psychiatric exam: PRESENT: appropriate affect, normal mood. ABSENT: homicidal ideation, suicidal ideation Skin exam: PRESENT: dry, intact, warm. ABSENT: cyanosis, rash Results Laboratory Results: 09/24/16 04:05 09/24/16 04:05 09/24/16 09/24/16 04:05 04:05 WBC 14.1 H RBC 4.78 Hgb 12.6 L Hct 39.3 MCV 82 MCH 26.4 L MCHC 32.1 RDW 15.7 H Plt Count 210 Seg Neutrophils % 77.3 Lymphocytes % 11.9 L Monocytes % 10.3 Eosinophils % 0.4 Basophils % 0.1 Absolute Neutrophils 10.9 H Absolute Lymphocytes 1.7 Absolute Monocytes 1.5 H Absolute Eosinophils 0.1 Absolute Basophils 0.0 Sodium 139.2 Potassium 4.2 Chloride 101 Carbon Dioxide 28 Anion Gap 10 BUN 38 H Creatinine 1.17 Est GFR ( Amer) > 60 Est GFR (Non-Af Amer) > 60 Glucose 99 Calcium 8.5 09/22/16 09/22/16 09/22/16 03:37 03:37 10:22 Creatine Kinase 82 84 CK-MB (CK-2) 2.04 Troponin I 0.029 09/22/16 09/22/16 09/22/16 10:22 15:30 15:30 Creatine Kinase 73 CK-MB (CK-2) 2.56 2.74 Troponin I 0.019 0.017 Impressions: Chest X-Ray 09/21/16 21:07 IMPRESSION: Bibasilar interstitial airspace disease most likely early edema. Pneumonia is thought to be less likely but not excluded. Assessment & Plan - Diagnosis (1) Pneumonia Qualifiers: Pneumonia type: due to unspecified organism Laterality: bilateral Lung location: lower lobe of lung Qualified Code(s): J18.9 - Pneumonia, unspecified organism Is this a current diagnosis for this admission?: YesPlan: Sputum culture is pending. Started on empiric antibiotics, and nebulizers. Likely descalate antibiotics tomorrow to oral and discharge home (2) Sepsis Is this a current diagnosis for this admission?: YesPlan: He was hypotensive requiring 3 liters of fluid. He is now improved Patient is not tachycardic, hypotensive or febrile at the present time. S (3) COPD (chronic obstructive pulmonary disease) Qualifiers: Emphysema type: unspecified Is this a current diagnosis for this admission?: Yes (4) Chronic kidney disease (CKD) Qualifiers: Chronic kidney disease stage: stage 3 (moderate) Qualified Code(s): N18.3 - Chronic kidney disease, stage 3 (moderate) Is this a current diagnosis for this admission?: Yes (5) Hypertension Qualifiers: Hypertension type: essential hypertension Qualified Code(s): I10 - Essential (primary) hypertension Is this a current diagnosis for this admission?: Yes (6) Chronic systolic CHF (congestive heart failure), NYHA class 3 Is this a current diagnosis for this admission?: Yes
[2016-09-24] MEDS: CEFTRIAXONE 1 GM/D5W RTU 1 GM/50 ML RTUPB IV SCH (18:00)
[2016-09-24] MEDS ORDERED: AZITHROMYCIN 250 MG TABLET PO SCH (22:00)
[2016-09-24] MEDS: ATORVASTATIN CALCIUM 10 MG TABLET PO SCH (22:28)
[2016-09-25] MEDS: HEPARIN SOD (PORCINE) 5,000 UNIT/ML 1 ML SYRINGE SUBCUT SCH (05:40)
[2016-09-25] MEDS: IPRATROPIUM/ALBUTEROL 0.5-2.5 MG/3 ML AMPUL NEB PRN (08:18)
[2016-09-25] MEDS: BUDESONIDE/FORMOTEROL 160-4.5 MCG 60 PUFF/6 GM MDI IH SCH (09:43)
[2016-09-25] MEDS: TIOTROPIUM BROMIDE DPI 5 CAP/KIT (18 MCG/CAP) IH SCH (09:43)
[2016-09-25] MEDS: CARVEDILOL 12.5 MG TABLET PO SCH (09:44)
[2016-09-25] MEDS: GUAIFENESIN 600 MG TABLET.SA PO SCH (09:44)
[2016-09-25] MEDS: ASCORBIC ACID 500 MG TABLET PO SCH (09:44)
[2016-09-25] MEDS: FUROSEMIDE 40 MG TABLET PO SCH (09:44)
[2016-09-25] MEDS: LOSARTAN POTASSIUM 50 MG TABLET PO SCH (09:44)
[2016-09-25] MEDS: DOCUSATE SODIUM 100 MG CAPSULE PO SCH (09:44)
[2016-09-25] MEDS: ASPIRIN 81 MG TABLET, ENT COATED PO SCH (09:45)
[2016-09-25 09:58] VITALS: BP 129/89
--- NOTE | 2016-09-25 13:30 | PDOC DISCHARGE SUMMARY ---
General - Admit/Disc Date/PCP Admission Date/Primary Care Provider: 09/21/16 22:40 AUGUSTIN COVARRUBIAS, Discharge Date: 09/25/16 - Discharge Diagnosis (1) COPD (chronic obstructive pulmonary disease) Is this a current diagnosis for this admission?: YesSummary: Acute Exacerbation (2) Pneumonia of both lower lobes Is this a current diagnosis for this admission?: Yes (3) Sepsis Is this a current diagnosis for this admission?: Yes (4) Hypertension Is this a current diagnosis for this admission?: Yes (6) Chronic systolic CHF (congestive heart failure), NYHA class 3 Is this a current diagnosis for this admission?: Yes - Additional Information Resuscitation Status: Full Code Discharge Diet: Cardiac Discharge Activity: Activity As Tolerated Home Medications: Amlodipine Besylate [Norvasc 5 mg Tablet] 5 mg PO Q12 09/22/16 Ascorbic Acid [Vitamin C] 1,000 mg PO DAILY 09/22/16 Aspirin [Aspirin 325 mg Tablet] 325 mg PO DAILY 09/22/16 Atorvastatin Calcium [Lipitor 10 mg Tablet] 10 mg PO QHS 09/22/16 Budesonide/Formoterol Fumarate [Symbicort HFA 160-4.5 mcg Inhaler 6 gm] 2 puff IH BID 09/22/16 Carvedilol [Coreg 25 mg Tablet] 25 mg PO BID 09/22/16 Cetirizine HCl [Zyrtec 10 mg Tablet] 10 mg PO DAILY 09/22/16 Ergocalciferol (Vitamin D2) [Drisdol 50,000 unit (1.25MG) Capsule] 50,000 unit PO Q7D 09/22/16 Furosemide [Lasix] 40 mg PO DAILY 09/22/16 Losartan Potassium [Cozaar 100 mg Tablet] 100 mg PO DAILY 09/22/16 Omeprazole 40 mg PO DAILY 09/22/16 Tiotropium Frontier [Spiriva Handihaler 18 mcg/dose (30 Dose)] 1 cap IH DAILY Zolpidem Tartrate [Ambien 5 mg Tablet] 5 mg PO QHS 09/22/16 Cefuroxime Axetil [Ceftin 500 mg Tablet] 1 tab PO BID #12 tablet 09/25/16 Guaifenesin [Mucinex Sr 600 mg Tablet.sa] 1,200 mg PO Q12 #12 tablet.sa Ipratropium/Albuterol Sulfate [Duoneb 3 ml Ampul] 1 vial NEB QIDP PRN #0 Prednisone [Deltasone 10 mg Tablet] 10 mg PO ASDIR PRN #21 tablet 09/25/16 History of Present Illness Patient complains of: Shortness of breath and cough History of Present Illness: RACHEL MOSQUERA is a 76 year old male with a past medical history of congestive heart failure with an ejection fraction of 45%, hypertension, stage III chronic kidney disease, dyslipidemia hypertension and COPD with Tobacco Dependence, who is been in his usual state of health until approximately 10 days ago noting to have shortness of breath with a nonproductive cough which has progressed prompting him to seek evaluation emergency room. He denies sinus congestion, sore throat, aspiration or infectious contacts. Denies any recent antibiotic use. In the emergency room he's found to have hypotension, tachycardia and leukocytosis of 19,000 with a chest x-ray with bilateral lower lobe infiltrates he started on empiric antibiotics referred to the hospitalist for admission. Hospital Course Hospital Course: The patient was admitted to limited treatment. The patient was placed on scheduled nebs, IV antibiotic coverage, expectorants, supplemental O2, senna spirometry and flutter valve. Sputum culture was obtained with no bacterial growth. The patient was placed on scheduled nebs as well as steroids, and supplemental oxygen. The patient's oxygen, steroids, and nebs were titrated and weaned. The patient is back to baseline and able to complete sentences Physical Exam Vital Signs: Temp Pulse Resp BP Pulse Ox 98.8 F 99 18 129/89 H 93 09/25/16 08:53 09/25/16 08:53 09/25/16 08:53 09/25/16 08:53 09/25/16 08:53 Intake & Output 09/23/16 09/24/16 09/25/16 23:59 23:59 23:59 Intake Total 990 1722 0 Balance 990 1722 0 Weight 76.9 kg 75.8 kg 74.6 kg General appearance: PRESENT: no acute distress, thin, well-developed Head exam: PRESENT: atraumatic, normocephalic Eye exam: PRESENT: conjunctival injection Ear exam: PRESENT: normal external ear exam Mouth exam: PRESENT: moist, tongue midline Neck exam: ABSENT: carotid bruit, JVD, lymphadenopathy, thyromegaly Respiratory exam: PRESENT: decreased breath sounds - both bases Cardiovascular exam: PRESENT: RRR. ABSENT: diastolic murmur, rubs, systolic murmur Pulses: PRESENT: normal dorsalis pedis pul Vascular exam: PRESENT: normal capillary refill GI/Abdominal exam: PRESENT: normal bowel sounds, soft. ABSENT: distended, guarding, mass, organolmegaly, rebound, tenderness Rectal exam: PRESENT: deferred Extremities exam: PRESENT: full ROM. ABSENT: calf tenderness, clubbing, pedal edema Musculoskeletal exam: PRESENT: ambulatory Neurological exam: PRESENT: alert, awake, oriented to person, oriented to place , oriented to time, oriented to situation, CN II-XII grossly intact. ABSENT: motor sensory deficit Psychiatric exam: PRESENT: appropriate affect, normal mood. ABSENT: homicidal ideation, suicidal ideation Skin exam: PRESENT: dry, intact, warm. ABSENT: cyanosis, rash Results Laboratory Results: G Labs- Last Values WBC 14.1 10^3/uL (4.0-10.5) H 09/24/16 04:05 RBC 4.78 10^6/uL (4.35-5.55) 09/24/16 04:05 Hgb 12.6 g/dL (13.5-17.0) L 09/24/16 04:05 Hct 39.3 % (37.9-51.0) 09/24/16 04:05 MCV 82 fl (80-97) 09/24/16 04:05 MCH 26.4 pg (27.0-33.4) L 09/24/16 04:05 MCHC 32.1 g/dL (32.0-36.0) 09/24/16 04:05 RDW 15.7 % (11.5-14.0) H 09/24/16 04:05 Plt Count 210 10^3/uL (150-450) 09/24/16 04:05 Total Counted 100 09/22/16 03:37 Seg Neutrophils % 77.3 % (42-78) 09/24/16 04:05 Seg Neuts % (Manual) 95 % (42-78) H 09/22/16 03:37 Lymphocytes % 11.9 % (13-45) L 09/24/16 04:05 Lymphocytes % (Manual) 4 % (13-45) L 09/22/16 03:37 Monocytes % 10.3 % (3-13) 09/24/16 04:05 Monocytes % (Manual) 1 % (3-13) L 09/22/16 03:37 Eosinophils % 0.4 % (0-6) 09/24/16 04:05 Eosinophils % (Manual) 0 % (0-6) 09/22/16 03:37 Basophils % 0.1 % (0-2) 09/24/16 04:05 Basophils % (Manual) 0 % (0-2) 09/22/16 03:37 Absolute Neutrophils 10.9 10^3/uL (1.7-8.2) H 09/24/16 04:05 Abs Neuts (Manual) 15.6 10^3/uL (1.7-8.2) H 09/22/16 03:37 Absolute Lymphocytes 1.7 10^3/uL (0.5-4.7) 09/24/16 04:05 Abs Lymphs (Manual) 0.7 10^3/uL (0.5-4.7) 09/22/16 03:37 Absolute Monocytes 1.5 10^3/uL (0.1-1.4) H 09/24/16 04:05 Abs Monocytes (Manual) 0.2 10^3/uL (0.1-1.4) 09/22/16 03:37 Absolute Eosinophils 0.1 10^3/uL (0.0-0.6) 09/24/16 04:05 Absolute Eos (Manual) 0.0 10^3/uL (0.0-0.6) 09/22/16 03:37 Absolute Basophils 0.0 10^3/uL (0.0-0.2) 09/24/16 04:05 Abs Basophils (Manual) 0.0 10^3/uL (0.0-0.2) 09/22/16 03:37 Platelet Comment ADEQUATE 09/22/16 03:37 Poikilocytosis SLIGHT 09/22/16 03:37 Anisocytosis 1+ 09/22/16 03:37 Ovalocytes SLIGHT 09/22/16 03:37 PT 17.0 SEC (11.4-15.4) H 09/21/16 21:10 INR 1.33 09/21/16 21:10 APTT 31.6 SEC (23.5-35.8) 09/21/16 21:10 VBG pH 7.43 (7.30-7.42) H 09/21/16 21:10 VBG pCO2 46.8 mmHg (35-63) 09/21/16 21:10 VBG HCO3 30.5 mmol/L (20-32) 09/21/16 21:10 VBG Base Excess 5.3 mmol/L 09/21/16 21:10 Sodium 139.2 mmol/L (137-145) 09/24/16 04:05 Potassium 4.2 mmol/L (3.6-5.0) 09/24/16 04:05 Chloride 101 mmol/L (98-107) 09/24/16 04:05 Carbon Dioxide 28 mmol/L (22-30) 09/24/16 04:05 Anion Gap 10 (5-19) 09/24/16 04:05 BUN 38 mg/dL (7-20) H 09/24/16 04:05 Creatinine 1.17 mg/dL (0.52-1.25) 09/24/16 04:05 Est GFR ( Amer) > 60 (>60) 09/24/16 04:05 Est GFR (Non-Af Amer) > 60 (>60) 09/24/16 04:05 Glucose 99 mg/dL (75-110) 09/24/16 04:05 Calcium 8.5 mg/dL (8.4-10.2) 09/24/16 04:05 Total Bilirubin 1.3 mg/dL (0.2-1.3) 09/21/16 21:10 Direct Bilirubin 0.5 mg/dL (0.0-0.4) H 09/21/16 21:10 Indirect Bilirubin Not Reportable 09/21/16 21:10 Neonat Total Bilirubin Not Reportable 09/21/16 21:10 AST 24 U/L (17-59) 09/21/16 21:10 ALT 36 U/L (21-72) 09/21/16 21:10 Alkaline Phosphatase 71 U/L (38-126) 09/21/16 21:10 Creatine Kinase 73 U/L (55-170) 09/22/16 15:30 CK-MB (CK-2) 2.74 ng/mL (<4.55) 09/22/16 15:30 Troponin I 0.017 ng/mL 09/22/16 15:30 NT-Pro-B Natriuret Pep 537 pg/mL (<450) H 09/21/16 21:10 Total Protein 6.3 g/dL (6.3-8.2) 09/21/16 21:10 Albumin 3.1 g/dL (3.5-5.0) L 09/21/16 21:10 Impressions: Chest X-Ray 09/21/16 21:07 IMPRESSION: Bibasilar interstitial airspace disease most likely early edema. Pneumonia is thought to be less likely but not excluded. Qualifiers PATEINT BEING DISCHARGED WITH ANY OF THE FOLLOWING DIAGNOSIS?: No Plan Time Spent: Less than 30 Minutes
== END 2016-09-25 10:37 | disposition home or self-care (01) | DRG 871 ==
LOC: ER 21:02 → EH 22:40 → UNDOADMIN 22:49 → EH 22:49 → 5 09-22 01:31
PROVIDERS: ADMIT Internal Medicine; ATTEND Internal Medicine
DX: A41.9 Sepsis, unspecified organism (principal); J18.1 Lobar pneumonia, unspecified organism; I50.23 Acute on chronic systolic (congestive) heart failure; J44.0 Chronic obstructive pulmonary disease with (acute) lower respiratory infection; J44.1 Chronic obstructive pulmonary disease with (acute) exacerbation; I13.0 Hypertensive heart and chronic kidney disease with heart failure and stage 1 through stage 4 chronic kidney disease, or unspecified chronic kidney disease; N18.3 Chronic kidney disease, stage 3 (moderate); E78.5 Hyperlipidemia, unspecified; F17.200 Nicotine dependence, unspecified, uncomplicated; Z79.82 Long term (current) use of aspirin; Z79.899 Other long term (current) drug therapy
CPT/HCPCS: 36415; 71010; 80048; 80053; 82550; 82553; 82803; 83880; 84484; 85025; 85610; 85730; 87040; 87070; 87077; 87186; 87205; 93005; 93010; 94667; 94799; 99285; J0456; J0696; J1644; J3490; J7030; J7060; J7620

== ENCOUNTER 2016-12-19 05:28 | Inpatient (IN) | payer MEDICARE ==
[2016-12-19] MEDS ORDERED: IPRATROPIUM/ALBUTEROL 0.5-2.5 MG/3 ML AMPUL NEB ONE ×2 (05:55→05:59)
[2016-12-19] MEDS ORDERED: METHYLPREDNISOLONE INJ 125 MG/2 ML SDV IV ONE (05:55)
[2016-12-19] MEDS ORDERED: NORMAL SALINE 1000 ML 500 ML IV ONE (05:59)
[2016-12-19] MEDS ORDERED: METHYLPREDNISOLONE INJ 125 MG/2 ML SDV ONE (05:59)
[2016-12-19] MEDS ORDERED: MAGNESIUM SULFATE/D5W 2 GM/200 ML RTUPB IV ONE (06:01)
--- NOTE | 2016-12-19 06:03 | ER Document Report ---
Doctor's Note Notes: 12/19/16 06:00 I briefly assessed the patient upon arrival. Patient is in moderate to severe respiratory distress, tachypneic into the 30s with retractions. He has a history of COPD and has very poor air movement in all lung ramos, wheezing throughout. Patient will be placed on BiPAP and will begin continuous in-line nebulizers with albuterol and Atrovent. Will also give IV Solu-Medrol 125 mg and again 2 g of magnesium over the next 20 minutes. Patient also appears clinically dehydrated and will be given a small fluid bolus of 500 cc of normal saline. Laboratories were also obtained. A stat portable chest x-ray has likewise been obtained. Will transfer care to the a.m. physician.
[2016-12-19] MEDS: MAGNESIUM SULFATE/D5W 100 ML IV SCH ×2 (06:08→06:11)
[2016-12-19 06:09] LABS: ABSOLUTE BASOPHILS # (AUTO) 0.1 10^3/uL (0.0-0.2); ABSOLUTE EOSINOPHILS # (AUTO) 0.1 10^3/uL (0.0-0.6); ABSOLUTE LYMPHOCYTES (AUTO) 0.7 10^3/uL (0.5-4.7); ABSOLUTE MONOCYTES (AUTO) 0.6 10^3/uL (0.1-1.4); ABSOLUTE NEUT (AUTO) 10.2 10^3/uL (1.7-8.2); BASOPHILS % (AUTO) 0.6 % (0-2); EOSINOPHILS % (AUTO) 0.7 % (0-6); HEMATOCRIT 46.2 % (37.9-51.0); HEMOGLOBIN 14.5 g/dL (13.5-17.0); HGB HCT DIFFERENCE -2.7; LYMPHOCYTES % (AUTO) 6.4 % (13-45); MEAN CORPUSCULAR HEMOGLOBIN 26.4 pg (27.0-33.4); MEAN CORPUSCULAR HGB CONC 31.4 g/dL (32.0-36.0); MEAN CORPUSCULAR VOLUME 84 fl (80-97); MONOCYTES % (AUTO) 5.2 % (3-13); RED CELL DISTRIBUTION WIDTH 16.4 % (11.5-14.0); SEGMENTED NEUTROPHILS % (AUTO) 87.1 % (42-78); WHITE BLOOD COUNT 11.7 10^3/uL (4.0-10.5)
--- NOTE | 2016-12-19 06:13 | RADIOLOGY REPORT (SQ) ---
EXAM DESCRIPTION: CHEST SINGLE VIEW COMPLETED DATE/TIME: 12/19/2016 5:59 am REASON FOR STUDY: sob COMPARISON: Chest x-ray 09/21/2016. EXAM PARAMETERS: NUMBER OF VIEWS: One view. TECHNIQUE: Single frontal radiographic view of the chest acquired. RADIATION DOSE: NA LIMITATIONS: None. FINDINGS: LUNGS AND PLEURA: Airspace opacity at the right lung base. No sizable pleural effusion. No pneumothorax. MEDIASTINUM AND HILAR STRUCTURES: No obvious masses. HEART AND VASCULAR STRUCTURES: Heart normal in size. No overt vascular congestion. Tortuous thoraci c aorta. BONES: Degenerative changes in the spine. HARDWARE: None in the chest. IMPRESSION: Airspace opacity at the right lung base, may represent pneumonia. Radiographic follow-u p recommended to ensure resolution and exclude a different etiology. TECHNICAL DOCUMENTATION: JOB ID: [id number]
[2016-12-19] MEDS ORDERED: LEVOFLOXACIN 750 MG/D5W RTU 150 ML IV ONE (06:20)
[2016-12-19] MEDS ORDERED: CEFEPIME 1 GM/D5W RTU 50 ML IV ONE (06:20)
[2016-12-19] MEDS ORDERED: VANCOMYCIN HCL INJ 1000 MG VIAL IV ONE (06:20)
[2016-12-19 06:22] LABS: ANION GAP 11 (5-19); BLOOD UREA NITROGEN 21 mg/dL (7-20); CALCIUM 9.3 mg/dL (8.4-10.2); CARBON DIOXIDE 28 mmol/L (22-30); CHLORIDE 103 mmol/L (98-107); CREATININE RESULT 1.44 mg/dL (0.52-1.25); GLUCOSE 121 mg/dL (75-110); SODIUM 142.1 mmol/L (137-145)
--- NOTE | 2016-12-19 06:32 | ER Document Report ---
ED Respiratory Problem - General Mode of Arrival: Ambulatory Information source: Patient Cannot obtain history due to: Other - medical condition TRAVEL OUTSIDE OF THE [place] IN LAST 30 DAYS: No - HPI Patient complains to provider of: Short of breath Onset: Yesterday Duration: Worse/persistent Severity: Severe Context: Hx COPD Short of Breath: Severe <FLORIN NAQVI - Last Filed: 12/19/16 07:23> <JENNIFER OLEA - Last Filed: 12/19/16 08:32> - General Chief Complaint: Shortness Of Breath Stated Complaint: SHORT OF BREATH Time Seen by Provider: 12/19/16 06:19 Notes: Patient is a 76 year old male that presents to the emergency department today in severe respiratory distress. Patient has a history of COPD but states he quit smoking "years ago". Patient states he has at home inhalers which he used is prior to arrival however he did not receive relief. History is difficult to obtain secondary to patient's medical condition. (FLORIN NAQVI) - Related Data Allergies/Adverse Reactions: No Known Allergies Allergy (Verified 12/19/16 05:31) Past Medical History - General Information source: Patient - Social History Smoking Status: Former Smoker - "years ago" Cigarette use (# per day): No Frequency of alcohol use: None Drug Abuse: None Lives with: Family Family History: Reviewed & Not Pertinent - Past Medical History Cardiac Medical History: Reports: Hx Congestive Heart Failure, Hx Coronary Artery Disease, Hx Heart Attack, Hx Hypercholesterolemia, Hx Hypertension Renal/ Medical History: Reports: Hx Peritoneal Dialysis Surgical Hx: Negative - Immunizations Hx Diphtheria, Pertussis, Tetanus Vaccination: Yes <FLORIN NAQVI - Last Filed: 12/19/16 07:23> Review of Systems - Review of Systems Constitutional: No symptoms reported EENT: No symptoms reported Cardiovascular: No symptoms reported Respiratory: See HPI, Cough, Short of breath Gastrointestinal: No symptoms reported Genitourinary: No symptoms reported Male Genitourinary: No symptoms reported Musculoskeletal: No symptoms reported Skin: No symptoms reported Hematologic/Lymphatic: No symptoms reported Neurological/Psychological: No symptoms reported -: Yes All other systems reviewed and negative <FLORIN NAQVI - Last Filed: 12/19/16 07:23> Physical Exam - Vital signs Interpretation: Hypotensive, Hypoxic <FLORIN NAQVI - Last Filed: 12/19/16 07:23> <JENNIFER OLEA - Last Filed: 12/19/16 08:32> - Vital signs Vitals: Temp Pulse Resp BP Pulse Ox 98.2 F 104 H 25 H 111/79 90 L 12/19/16 05:31 12/19/16 05:31 12/19/16 05:31 12/19/16 05:31 12/19/16 05:31 - Notes Notes: Physical Exam: General: Alert, in severe distress. HEENT: Normocephalic. Atraumatic. PERRL. Extraocular movements intact. Oropharynx clear. Neck: Supple. Non-tender. Respiratory: Severe respiratory distress. Tachypneic with retractions. Poor air movement. Cardiovascular: Regular rate and rhythm. Abdominal: Normal Inspection. Non-tender. No distension. Normal Bowel Sounds. Back: Non-tender. No deformity or step off. Extremities: Moves all four extremities. Upper extremities: Normal inspection. Normal ROM. Lower extremities: Normal inspection. No edema. Normal ROM. Neurological: Normal cognition. AAOx4. Normal speech. Psychological: Normal affect. Normal Mood. Skin: Warm. Dry. Normal color. (FLORIN NAQVI) Course - Laboratory Result Diagrams: 12/19/16 05:55 12/19/16 05:55 - Consults Hospitalist Time consulted: 06:30 <FLORIN NAQVI - Last Filed: 12/19/16 07:23> - Laboratory Result Diagrams: 12/19/16 05:55 12/19/16 05:55 <JENNIFER OLEA - Last Filed: 12/19/16 08:32> - Re-evaluation Re-evalutation: 12/19/16 06:15 Patient is a 76-year-old male who comes in in severe respiratory distress. Patient is given nebulizer, Solu-Medrol, magnesium, and placed on BiPAP. Chest x-ray consistent with pneumonia. Patient was admitted for pneumonia in August. History of Pseudomonas. 12/19/16 06:45 Patient improving after nebs. Resting on BiPAP and speaking in full sentences. Asking if he can go home. Explained to patient that his breathing is still not where it should be. Patient is being treated for pneumonia. Blood cultures have been sent. 12/19/16 07:30 Patient discussed with hospitalist service. Resting comfortably on BiPAP. Patient was hypotensive but improved with fluids. Will be placed in IMCU. Stable at time of admission. (JENNIFER OLEA) - Vital Signs Vital signs: Temp Pulse Resp BP Pulse Ox 98.2 F 104 H 26 H 106/85 94 12/19/16 05:31 12/19/16 05:31 12/19/16 07:40 12/19/16 07:46 12/19/16 07:46 - Laboratory Laboratory results interpreted by me: 12/19/16 12/19/16 05:55 05:55 WBC 11.7 H MCH 26.4 L MCHC 31.4 L RDW 16.4 H Plt Count 122 L Seg Neutrophils % 87.1 H Lymphocytes % 6.4 L Absolute Neutrophils 10.2 H BUN 21 H Creatinine 1.44 H Est GFR ( Amer) 57 L Est GFR (Non-Af Amer) 47 L Glucose 121 H Critical Care Note - Critical Care Note Total time excluding time spent on procedures (mins): 35 - Evaluation and management of respiratory distress, multiple re-evaluations, management of airway and breathing. Coordination of admission, counseling of patient <JENNIFER OLEA - Last Filed: 12/19/16 08:32> Discharge <FLORIN NAQVI - Last Filed: 12/19/16 07:23> - Discharge Admitting Provider: Hospitalist - [facility] Admitted: IMCU <JENNIFER OLEA - Last Filed: 12/19/16 08:32> - Discharge Clinical Impression: Respiratory distress COPD (chronic obstructive pulmonary disease) Qualifiers: COPD type: emphysema Emphysema type: unspecified Qualified Code(s): J43.9 - Emphysema, unspecified Pneumonia Qualifiers: Pneumonia type: due to unspecified organism Laterality: right Lung location: upper lobe of lung Qualified Code(s): J18.1 - Lobar pneumonia, unspecified organism Disposition: ADMITTED INPATIENT Scribe Attestation: 12/19/16 08:31 I personally performed the services described in the documentation, reviewed and edited the documentation which was dictated to the scribe in my presence, and it accurately records my words and actions. (JENNIFER OLEA) Scribe Documentation - Scribe Written by Scribe:: Johnathan Cleaning, 12/19/2016 0718 acting as scribe for :: Belen <FLORIN NAQVI - Last Filed: 12/19/16 07:23>
[2016-12-19] MEDS ORDERED: NORMAL SALINE 1000 ML 1,000 ML IV ONE (07:13)
[2016-12-19] MEDS ORDERED: ACETAMINOPHEN 325 MG TABLET PO PRN (08:31)
[2016-12-19] MEDS ORDERED: GUAIFENESIN SYRP 200 MG/10 ML UDC PO PRN (08:31)
[2016-12-19] MEDS ORDERED: NORMAL SALINE 1000 ML 1,000 ML IV PRN (08:40)
--- NOTE | 2016-12-19 09:37 | EKG REPORT ---
SEVERITY:- ABNORMAL ECG - SINUS TACHYCARDIA MULTIFORM VENTRICULAR AND SUPRAVENTRICULAR PREMATURE COMPLEXES RIGHT BUNDLE BRANCH BLOCK : Confirmed by: Vashti Crabtree 19-Dec-2016 09:36:24
[2016-12-19] MEDS: GUAIFENESIN 600 MG TABLET.SA PO SCH ×2 (10:45→21:13)
[2016-12-19] MEDS: IPRATROPIUM/ALBUTEROL 0.5-2.5 MG/3 ML AMPUL NEB SCH ×3 (11:42→20:11)
[2016-12-19] MEDS: HEPARIN SOD (PORCINE) 5,000 UNIT/ML 1 ML SYRINGE SUBCUT SCH ×2 (14:00→21:13)
[2016-12-19] MEDS: METHYLPREDNISOLONE INJ 40 MG/1 ML SDV IV SCH ×2 (17:00→21:13)
--- NOTE | 2016-12-19 17:04 | PDOC H&P ---
History of Present Illness Admission Date/PCP: 12/19/16 08:01 AUGUSTIN COVARRUBIAS, History of Present Illness: RACHEL MOSQUERA is a 76 year old male past medical history of chronic systolic and diastolic heart failure, chronic kidney disease stage III, hypertension, hyperlipidemia, COPD, pulmonary hypertension, moderate mitral regurgitation, moderate aortic regurgitation who presents to the emergency department with acute shortness of breath. Patient reports she began becoming short of breath starting yesterday. He has been having a cough that is productive of parker sputum. He denies any fevers or chills. He reports that he used nebulizers at home every 4 hours without relief. Denies any lower extremity swelling, abdominal distention, increased orthopnea. Is currently on BiPAP limiting the full HPI. Per the hospitalist service for pneumonia and acute hypoxemic respiratory failure. Past Medical History Cardiac Medical History: Reports: Congestive Heart Failure, Coronary Artery Disease, Myocardial Infarction, Hyperlipidema, Hypertension Pulmonary Medical History: Denies: Asthma, Bronchitis, Chronic Obstructive Pulmonary Disease (COPD), Pneumonia Neurological Medical History: Denies: Seizures Musculoskeltal Medical History: Denies: Arthritis Psychiatric Medical History: Denies: Depression Hematology: Denies: Anemia Past Surgical History Past Surgical History: Reports: None Social History Lives with: Family Smoking Status: Former Smoker - "years ago" Frequency of Alcohol Use: None Hx Recreational Drug Use: No Hx Prescription Drug Abuse: No - Advance Directive Resuscitation Status: Do Not Resuscitate Surrogate healthcare decision maker:: Martha Gaspar Family History Family History: CAD Parental Family History Reviewed: Yes Children Family History Reviewed: Yes Sibling(s) Family History Reviewed.: Yes Medication/Allergy Home Medications: Amlodipine Besylate [Amlodipine Besylate] 5 mg PO DAILY 12/19/16 Atorvastatin Calcium [Lipitor 10 mg Tablet] 10 mg PO QHS 12/19/16 Carvedilol [Carvedilol] 25 mg PO Q12 12/19/16 Furosemide [Furosemide] 40 mg PO DAILY 12/19/16 Ipratropium/Albuterol Sulfate [Iprat-Albut 0.5-3(2.5) mg/3 ml] 3 ml NEB Q6 12/19 Losartan Potassium [Losartan Potassium] 100 mg PO DAILY 12/19/16 Allergies/Adverse Reactions: No Known Allergies Allergy (Verified 12/19/16 05:31) Review of Systems Constitutional: ABSENT: chills, fever(s), headache(s), weight gain, weight loss Eyes: ABSENT: visual disturbances Ears: ABSENT: hearing changes Cardiovascular: ABSENT: chest pain, dyspnea on exertion, edema, orthropnea, palpitations Respiratory: PRESENT: cough, dyspnea, sputum. ABSENT: hemoptysis Gastrointestinal: ABSENT: abdominal pain, constipation, diarrhea, hematemesis, hematochezia, nausea, vomiting Genitourinary: ABSENT: dysuria, hematuria Musculoskeletal: ABSENT: joint swelling Integumentary: ABSENT: rash, wounds Neurological: ABSENT: abnormal gait, abnormal speech, confusion, dizziness, focal weakness, syncope Psychiatric: ABSENT: anxiety, depression, homidical ideation, suicidal ideation Endocrine: ABSENT: cold intolerance, heat intolerance, polydipsia, polyuria Hematologic/Lymphatic: ABSENT: easy bleeding, easy bruising Physical Exam Vital Signs: Temp Pulse Resp BP Pulse Ox 98.2 F 104 H 22 H 113/86 H 95 12/19/16 05:31 12/19/16 05:31 12/19/16 08:19 12/19/16 08:25 12/19/16 08:24 General appearance: PRESENT: mild distress, well-developed, well-nourished Head exam: PRESENT: atraumatic, normocephalic Eye exam: PRESENT: conjunctiva pink, EOMI, PERRLA. ABSENT: scleral icterus Ear exam: PRESENT: normal external ear exam Mouth exam: PRESENT: moist, tongue midline Neck exam: ABSENT: JVD, lymphadenopathy, thyromegaly, tracheal deviation Respiratory exam: PRESENT: accessory muscle use, prolonged expiratory phas, rhonchi - bilateral bases, symmetrical, tachypnea, wheezes. ABSENT: crackles, rales, retraction, unlabored Cardiovascular exam: PRESENT: RRR, +S1, +S2, systolic murmur. ABSENT: diastolic murmur, rubs Pulses: PRESENT: normal dorsalis pedis pul Vascular exam: PRESENT: normal capillary refill GI/Abdominal exam: PRESENT: normal bowel sounds, soft. ABSENT: distended, firm , guarding, mass, organolmegaly, rebound, rigid, tenderness Rectal exam: PRESENT: deferred Extremities exam: PRESENT: full ROM. ABSENT: calf tenderness, clubbing, pedal edema Neurological exam: PRESENT: alert, awake, oriented to person, oriented to place , oriented to time, oriented to situation, CN II-XII grossly intact. ABSENT: motor sensory deficit Psychiatric exam: PRESENT: appropriate affect, normal mood. ABSENT: homicidal ideation, suicidal ideation Skin exam: PRESENT: dry, intact, warm. ABSENT: cyanosis, rash Results Impressions: Chest X-Ray 12/19/16 05:38 IMPRESSION: Airspace opacity at the right lung base, may represent pneumonia. Radiographic follow-up recommended to ensure resolution and exclude a different etiology. Assessment & Plan - Diagnosis (1) Sepsis Is this a current diagnosis for this admission?: YesPlan: Patient on cefepime and Levaquin (2) Acute hypoxemic respiratory failure Is this a current diagnosis for this admission?: YesPlan: Oxygen and BiPAP (3) COPD (chronic obstructive pulmonary disease) Qualifiers: COPD type: emphysema Emphysema type: unspecified Qualified Code(s) : J43.9 - Emphysema, unspecified Is this a current diagnosis for this admission?: YesPlan: Patient on Solu-Medrol 80 mg IV q. 8 Nebulized treatments (4) Pneumonia Qualifiers: Pneumonia type: due to unspecified organism Laterality: bilateral Lung location: lower lobe of lung Qualified Code(s): J18.9 - Pneumonia, unspecified organism Is this a current diagnosis for this admission?: YesPlan: Appears to have bilateral lower lobe pneumonia and a history of Pseudomonas. Patient currently on cefepime and Levaquin. Pending sputum culture. Scheduled nebulized treatments and aggressive pulmonary toileting (5) Chronic kidney disease, stage III (moderate) Is this a current diagnosis for this admission?: Yes (6) Chronic systolic CHF (congestive heart failure), NYHA class 3 Is this a current diagnosis for this admission?: YesPlan: Currently euvolemic to dehydrated Last known EF is 20-25% with grade 2 out of 4 diastolic dysfunction We will continue Lasix, Cozaar, Coreg, as blood pressure tolerates. (7) Hypertension Qualifiers: Hypertension type: essential hypertension Qualified Code(s): I10 - Essential (primary) hypertension Is this a current diagnosis for this admission?: Yes - Time Time Spent: 50 to 70 Minutes Medications reviewed and adjusted accordingly: Yes - Inpatient Certification Based on my medical assessment, after consideration of the patient's comorbidities, presenting symptoms, or acuity I expect that the services needed warrant INPATIENT care.: Yes I certify that my determination is in accordance with my understanding of Medicare's requirements for reasonable and necessary INPATIENT services [42 CFR 412.3e].: Yes Medical Necessity: Need for Nebulizer Therapy and Monitoring of Response, Need for IV Antibiotics Post Hospital Care: D/C Supervisor Winter Documentation
[2016-12-19] MEDS: CARVEDILOL 12.5 MG TABLET PO SCH (21:05)
[2016-12-19] MEDS: ATORVASTATIN CALCIUM 10 MG TABLET PO SCH (21:13)
[2016-12-19] MEDS ORDERED: (PENDING PHARMACY ID) (Carvedilol [Carvedilol] 25 MG) PO SCH (22:00)
[2016-12-20 05:06] LABS: ABSOLUTE LYMPHOCYTES (AUTO) 1.2 10^3/uL (0.5-4.7); ABSOLUTE MONOCYTES (AUTO) 0.6 10^3/uL (0.1-1.4); ABSOLUTE NEUT (AUTO) 14.9 10^3/uL (1.7-8.2); BASOPHILS % (AUTO) 0.3 % (0-2); HEMATOCRIT 40.6 % (37.9-51.0); HEMOGLOBIN 12.7 g/dL (13.5-17.0); HGB HCT DIFFERENCE -2.5; LYMPHOCYTES % (AUTO) 6.9 % (13-45); MEAN CORPUSCULAR HEMOGLOBIN 26.7 pg (27.0-33.4); MEAN CORPUSCULAR HGB CONC 31.4 g/dL (32.0-36.0); MEAN CORPUSCULAR VOLUME 85 fl (80-97); MONOCYTES % (AUTO) 3.4 % (3-13); RED BLOOD COUNT 4.76 10^6/uL (4.35-5.55); RED CELL DISTRIBUTION WIDTH 16.4 % (11.5-14.0); SEGMENTED NEUTROPHILS % (AUTO) 89.4 % (42-78); WHITE BLOOD COUNT 16.7 10^3/uL (4.0-10.5)
[2016-12-20 05:27] LABS: ANION GAP 9 (5-19); BLOOD UREA NITROGEN 28 mg/dL (7-20); CALCIUM 8.9 mg/dL (8.4-10.2); CARBON DIOXIDE 23 mmol/L (22-30); CHLORIDE 107 mmol/L (98-107); CREATININE RESULT 1.22 mg/dL (0.52-1.25); GLUCOSE 117 mg/dL (75-110); POTASSIUM 4.7 mmol/L (3.6-5.0)
[2016-12-20] MEDS: HEPARIN SOD (PORCINE) 5,000 UNIT/ML 1 ML SYRINGE SUBCUT SCH ×3 (06:12→21:00)
[2016-12-20] MEDS: METHYLPREDNISOLONE INJ 40 MG/1 ML SDV IV SCH (06:19)
[2016-12-20] MEDS: IPRATROPIUM/ALBUTEROL 0.5-2.5 MG/3 ML AMPUL NEB SCH ×4 (08:22→20:09)
[2016-12-20] MEDS: GUAIFENESIN 600 MG TABLET.SA PO SCH ×2 (09:39→20:59)
[2016-12-20] MEDS: FUROSEMIDE 40 MG TABLET PO SCH (09:39)
[2016-12-20] MEDS: LOSARTAN POTASSIUM 50 MG TABLET PO SCH ×2 (09:39→20:59)
[2016-12-20] MEDS: CARVEDILOL 12.5 MG TABLET PO SCH ×2 (09:40→20:59)
[2016-12-20] MEDS ORDERED: LEVOFLOXACIN 750 MG/D5W RTU 750 MG/150 ML RTUPB IV SCH (10:00)
[2016-12-20] MEDS ORDERED: CEFEPIME 2 GM/D5W RTU 2 GM/50 ML RTUPB IV SCH (10:00)
[2016-12-20] MEDS ORDERED: (PENDING PHARMACY ID) (Losartan Potassium [Losartan Potassium] 50 MG) PO SCH (10:00)
[2016-12-20] MEDS ORDERED: PREDNISONE 20 MG TABLET PO ONE (11:30)
[2016-12-20] MEDS: LEVOFLOXACIN 750 MG TABLET PO SCH (11:46)
[2016-12-20] MEDS ORDERED: METHYLPREDNISOLONE INJ 125 MG/2 ML SDV IV SCH (14:00)
--- NOTE | 2016-12-20 15:28 | PDOC PROGRESS REPORT ---
Subjective Progress Note for:: 12/20/16 Subjective:: Reports that he is feeling better today. Denies chest pain, nausea, vomiting, fever, chills, focal weakness. Physical Exam Vital Signs: Temp Pulse Resp BP Pulse Ox 97.7 F 80 20 119/80 96 12/20/16 04:18 12/20/16 06:57 12/20/16 04:18 12/20/16 04:18 12/20/16 04:18 Intake & Output 12/19/16 12/20/16 12/21/16 06:59 06:59 06:59 Intake Total 1212 Output Total 800 Balance 412 Weight 81.7 kg Exam: GENERAL: No acute distress HEENT: Conjunctiva clear, nonicteric, moist mucous membranes, no JVD, midline trachea RESPIRATORY: RLL rhonchi, prolonged expiratory phase CARDIAC: Regular rate and rhythm, no gallops/rubs; +SM ABDOMEN: Soft, nondistended, active bowel sounds, no rebound, no guarding EXTREMETIES: no cyanosis, clubbing; trace edema NEUROLOGIC: A+Ox3, CN grossly intact, no focal deficits SKIN: No rashes and lesions Results Laboratory Results: 12/20/16 04:10 12/20/16 04:10 12/20/16 12/20/16 04:10 04:10 WBC 16.7 H RBC 4.76 Hgb 12.7 L Hct 40.6 MCV 85 MCH 26.7 L MCHC 31.4 L RDW 16.4 H Plt Count 103 L Seg Neutrophils % 89.4 H Lymphocytes % 6.9 L Monocytes % 3.4 Eosinophils % 0.0 Basophils % 0.3 Absolute Neutrophils 14.9 H Absolute Lymphocytes 1.2 Absolute Monocytes 0.6 Absolute Eosinophils 0.0 Absolute Basophils 0.0 Sodium 139.0 Potassium 4.7 Chloride 107 Carbon Dioxide 23 Anion Gap 9 BUN 28 H Creatinine 1.22 Est GFR ( Amer) > 60 Est GFR (Non-Af Amer) 57 L Glucose 117 H Calcium 8.9 12/20/16 04:10 NT-Pro-B Natriuret Pep 2020 H Impressions: Chest X-Ray 12/19/16 05:38 IMPRESSION: Airspace opacity at the right lung base, may represent pneumonia. Radiographic follow-up recommended to ensure resolution and exclude a different etiology. Assessment & Plan - Diagnosis (1) Sepsis Is this a current diagnosis for this admission?: YesPlan: Stop Cefepime Continue patient on Levaquin 2/2 to pneumonia (2) Acute hypoxemic respiratory failure Is this a current diagnosis for this admission?: YesPlan: Continues to require oxygen off bipap (3) COPD (chronic obstructive pulmonary disease) Qualifiers: COPD type: emphysema Emphysema type: unspecified Qualified Code(s) : J43.9 - Emphysema, unspecified Is this a current diagnosis for this admission?: YesPlan: Transitin Solu-Medrol to prednisone Nebulized treatments (4) Pneumonia Qualifiers: Pneumonia type: due to unspecified organism Laterality: bilateral Lung location: lower lobe of lung Qualified Code(s): J18.9 - Pneumonia, unspecified organism Is this a current diagnosis for this admission?: YesPlan: Appears to have bilateral lower lobe pneumonia and a history of Pseudomonas. Patient currently on Levaquin day #2. Pending sputum culture. Scheduled nebulized treatments and aggressive pulmonary toileting (5) Chronic kidney disease, stage III (moderate) Is this a current diagnosis for this admission?: Yes (6) Chronic systolic CHF (congestive heart failure), NYHA class 3 Is this a current diagnosis for this admission?: YesPlan: Currently euvolemic Last known EF is 20-25% with grade 2 out of 4 diastolic dysfunction On Lasix, Cozaar, Coreg, as blood pressure tolerates. (7) Hypertension Qualifiers: Hypertension type: essential hypertension Qualified Code(s): I10 - Essential (primary) hypertension Is this a current diagnosis for this admission?: Yes - Time Time Spent with patient: 25-34 minutes Medications reviewed and adjusted accordingly: Yes Anticipated discharge: Home Within: within 48 hours
[2016-12-20] MEDS: PREDNISONE 20 MG TABLET PO SCH (17:12)
--- NOTE | 2016-12-20 18:53 | EKG REPORT ---
SEVERITY:- ABNORMAL ECG - SINUS RHYTHM RIGHT BUNDLE BRANCH BLOCK : Confirmed by: Vashti Crabtree 20-Dec-2016 18:53:17
[2016-12-20] MEDS: ATORVASTATIN CALCIUM 10 MG TABLET PO SCH (20:58)
[2016-12-21 05:01] LABS: ABSOLUTE MONOCYTES (AUTO) 0.7 10^3/uL (0.1-1.4); ABSOLUTE NEUT (AUTO) 16.2 10^3/uL (1.7-8.2); BASOPHILS % (AUTO) 0.1 % (0-2); HEMATOCRIT 39.5 % (37.9-51.0); HEMOGLOBIN 12.5 g/dL (13.5-17.0); LYMPHOCYTES % (AUTO) 5.4 % (13-45); MEAN CORPUSCULAR HEMOGLOBIN 26.5 pg (27.0-33.4); MEAN CORPUSCULAR HGB CONC 31.7 g/dL (32.0-36.0); MEAN CORPUSCULAR VOLUME 84 fl (80-97); RED BLOOD COUNT 4.72 10^6/uL (4.35-5.55); RED CELL DISTRIBUTION WIDTH 16.8 % (11.5-14.0); SEGMENTED NEUTROPHILS % (AUTO) 90.5 % (42-78); WHITE BLOOD COUNT 17.9 10^3/uL (4.0-10.5)
[2016-12-21] MEDS: HEPARIN SOD (PORCINE) 5,000 UNIT/ML 1 ML SYRINGE SUBCUT SCH (05:11)
[2016-12-21 05:18] LABS: ANION GAP 10 (5-19); BLOOD UREA NITROGEN 33 mg/dL (7-20); CARBON DIOXIDE 25 mmol/L (22-30); CHLORIDE 104 mmol/L (98-107); CREATININE RESULT 1.18 mg/dL (0.52-1.25); GLUCOSE 136 mg/dL (75-110); POTASSIUM 4.3 mmol/L (3.6-5.0); SODIUM 138.7 mmol/L (137-145)
[2016-12-21] MEDS: IPRATROPIUM/ALBUTEROL 0.5-2.5 MG/3 ML AMPUL NEB SCH ×2 (08:30→11:42)
[2016-12-21] MEDS: PREDNISONE 20 MG TABLET PO SCH (09:54)
[2016-12-21] MEDS: GUAIFENESIN 600 MG TABLET.SA PO SCH (09:54)
[2016-12-21] MEDS: FUROSEMIDE 40 MG TABLET PO SCH (09:54)
[2016-12-21] MEDS: CARVEDILOL 12.5 MG TABLET PO SCH (09:54)
[2016-12-21] MEDS: LOSARTAN POTASSIUM 50 MG TABLET PO SCH (09:54)
[2016-12-21] MEDS: LEVOFLOXACIN 750 MG TABLET PO SCH (10:00)
[2016-12-21 12:34] VITALS: BP 137/88
--- NOTE | 2016-12-21 17:04 | PDOC DISCHARGE SUMMARY ---
General - Admit/Disc Date/PCP Admission Date/Primary Care Provider: 12/19/16 08:32 AUGUSTIN COVARRUBIAS, Discharge Date: 12/21/16 - Discharge Diagnosis (1) Sepsis Is this a current diagnosis for this admission?: Yes (2) Acute hypoxemic respiratory failure Is this a current diagnosis for this admission?: Yes (3) COPD (chronic obstructive pulmonary disease) Is this a current diagnosis for this admission?: Yes (4) Pneumonia Is this a current diagnosis for this admission?: Yes (5) Chronic kidney disease, stage III (moderate) Is this a current diagnosis for this admission?: Yes (6) Chronic systolic CHF (congestive heart failure), NYHA class 3 Is this a current diagnosis for this admission?: Yes (7) Hypertension Is this a current diagnosis for this admission?: Yes - Additional Information Resuscitation Status: Do Not Resuscitate Discharge Diet: Cardiac Discharge Activity: Activity As Tolerated, Weigh Daily Home Medications: Amlodipine Besylate 5 mg PO DAILY 12/19/16 Atorvastatin Calcium [Lipitor 10 mg Tablet] 10 mg PO QHS 12/19/16 Carvedilol 25 mg PO Q12 12/19/16 Furosemide 40 mg PO DAILY 12/19/16 Ipratropium/Albuterol Sulfate [Iprat-Albut 0.5-3(2.5) mg/3 ml] 3 ml NEB Q6 12/19 Losartan Potassium 100 mg PO DAILY 12/19/16 Levofloxacin [Levaquin 750 mg Tablet] 750 mg PO DAILY@1100 #8 tablet 12/21/16 Prednisone [Deltasone 20 mg Tablet] 20 mg PO DAILY #18 tablet 12/21/16 History of Present Illness History of Present Illness: RACHEL MOSQUERA is a 76 year old male past medical history of chronic systolic and diastolic heart failure, chronic kidney disease stage III, hypertension, hyperlipidemia, COPD, pulmonary hypertension, moderate mitral regurgitation, moderate aortic regurgitation who presents to the emergency department with acute shortness of breath. Patient reports she began becoming short of breath starting yesterday. He has been having a cough that is productive of parker sputum. He denies any fevers or chills. He reports that he used nebulizers at home every 4 hours without relief. Denies any lower extremity swelling, abdominal distention, increased orthopnea. Is currently on BiPAP limiting the full HPI. Per the hospitalist service for pneumonia and acute hypoxemic respiratory failure. Hospital Course Hospital Course: Was easily transitioned off of BiPAP and on the nasal cannula oxygen where he was treated with Solu-Medrol which was transitioned to prednisone. He was continued on Levaquin during this. And he was feeling well and ready for discharge today. He was saturating 96% on room air. Patient was discharged in stable condition. Remainder of his course was unremarkable Physical Exam Vital Signs: Temp Pulse Resp BP Pulse Ox 97.9 F 69 20 137/88 H 98 12/21/16 12:33 12/21/16 12:33 12/21/16 12:33 12/21/16 12:33 12/21/16 12:33 Intake & Output 12/20/16 12/21/16 12/22/16 06:59 06:59 06:59 Intake Total 1212 3159 710 Output Total 800 Balance 412 3159 710 Weight 81.7 kg 79.9 kg Exam: GENERAL: No acute distress HEENT: Conjunctiva clear, nonicteric, moist mucous membranes, no JVD, midline trachea RESPIRATORY: Expiratory phase, otherwise clear to auscultation bilaterally CARDIAC: Regular rate and rhythm, no gallops/rubs; +SM ABDOMEN: Soft, nondistended, active bowel sounds, no rebound, no guarding EXTREMETIES: no cyanosis, clubbing; trace edema NEUROLOGIC: A+Ox3, CN grossly intact, no focal deficits SKIN: No rashes and lesions Results Laboratory Results: 12/21/16 04:21 12/21/16 04:21 12/21/16 12/21/16 04:21 04:21 WBC 17.9 H RBC 4.72 Hgb 12.5 L Hct 39.5 MCV 84 MCH 26.5 L MCHC 31.7 L RDW 16.8 H Plt Count 113 L Seg Neutrophils % 90.5 H Lymphocytes % 5.4 L Monocytes % 4.0 Eosinophils % 0.0 Basophils % 0.1 Absolute Neutrophils 16.2 H Absolute Lymphocytes 1.0 Absolute Monocytes 0.7 Absolute Eosinophils 0.0 Absolute Basophils 0.0 Sodium 138.7 Potassium 4.3 Chloride 104 Carbon Dioxide 25 Anion Gap 10 BUN 33 H Creatinine 1.18 Est GFR ( Amer) > 60 Est GFR (Non-Af Amer) > 60 Glucose 136 H Calcium 9.0 12/19/16 13:15 Sputum Gram Stain - Final 12/19/16 13:15 Sputum Sputum Culture - Final NORMAL BERNADINE 12/20/16 04:10 NT-Pro-B Natriuret Pep 2020 H Impressions: Chest X-Ray 12/19/16 05:38 IMPRESSION: Airspace opacity at the right lung base, may represent pneumonia. Radiographic follow-up recommended to ensure resolution and exclude a different etiology. Qualifiers PATEINT BEING DISCHARGED WITH ANY OF THE FOLLOWING DIAGNOSIS?: No Plan Time Spent: Less than 30 Minutes
== END 2016-12-21 13:35 | disposition home or self-care (01) | DRG 871 ==
LOC: ER 05:28 → UNDOADMIN 08:01 → EH 08:01 → 3W 09:55
PROVIDERS: ADMIT Family Medicine; ATTEND Family Medicine
PROC: 5A09457 Assistance with Respiratory Ventilation, 24-96 Consecutive Hours, Continuous Positive Airway Pressure (ICD-10-PCS; principal; 2016-12-19)
PROC: 3E0F73Z Introduction of Anti-inflammatory into Respiratory Tract, Via Natural or Artificial Opening (ICD-10-PCS; 2016-12-19)
DX: A41.9 Sepsis, unspecified organism (principal); J18.9 Pneumonia, unspecified organism; J96.21 Acute and chronic respiratory failure with hypoxia; I13.0 Hypertensive heart and chronic kidney disease with heart failure and stage 1 through stage 4 chronic kidney disease, or unspecified chronic kidney disease; I50.42 Chronic combined systolic (congestive) and diastolic (congestive) heart failure; J43.9 Emphysema, unspecified; N18.3 Chronic kidney disease, stage 3 (moderate); E78.5 Hyperlipidemia, unspecified; Z66 Do not resuscitate; I27.2 Other secondary pulmonary hypertension; I08.0 Rheumatic disorders of both mitral and aortic valves; I25.10 Atherosclerotic heart disease of native coronary artery without angina pectoris; I25.2 Old myocardial infarction; Z87.891 Personal history of nicotine dependence; Z79.899 Other long term (current) drug therapy; Z82.49 Family history of ischemic heart disease and other diseases of the circulatory system
CPT/HCPCS: 36415; 71010; 80048; 83880; 84484; 85025; 87040; 87070; 87205; 93005; 93010; 94640; 94660; 96365; 96375; 99291; J0692; J1644; J1956; J2920; J2930; J3370; J3475; J3490; J7030; J7512; J7620

== ENCOUNTER → 2017-01-19 | Outpatient (CLI) | payer MEDICARE ==
[2017-01-19 08:05] LABS: ABSOLUTE EOSINOPHILS # (AUTO) 0.3 10^3/uL (0.0-0.6); ABSOLUTE LYMPHOCYTES (AUTO) 1.7 10^3/uL (0.5-4.7); ABSOLUTE MONOCYTES (AUTO) 0.7 10^3/uL (0.1-1.4); ABSOLUTE NEUT (AUTO) 2.9 10^3/uL (1.7-8.2); BASOPHILS % (AUTO) 0.7 % (0-2); EOSINOPHILS % (AUTO) 4.6 % (0-6); HEMATOCRIT 43.6 % (37.9-51.0); HEMOGLOBIN 13.9 g/dL (13.5-17.0); HGB HCT DIFFERENCE -1.9; LYMPHOCYTES % (AUTO) 30.7 % (13-45); MEAN CORPUSCULAR HEMOGLOBIN 27.3 pg (27.0-33.4); MEAN CORPUSCULAR HGB CONC 31.9 g/dL (32.0-36.0); MEAN CORPUSCULAR VOLUME 86 fl (80-97); RED BLOOD COUNT 5.09 10^6/uL (4.35-5.55); RED CELL DISTRIBUTION WIDTH 15.9 % (11.5-14.0); WHITE BLOOD COUNT 5.6 10^3/uL (4.0-10.5)
[2017-01-19 08:46] LABS: ALANINE AMINOTRANSFERASE 18 U/L (21-72); ALBUMIN 3.5 g/dL (3.5-5.0); ALKALINE PHOSPHATASE 73 U/L (38-126); ANION GAP 10 (5-19); ASPARTATE AMINO TRANSFERASE 15 U/L (17-59); BILIRUBIN,DIRECT 0.3 mg/dL (0.0-0.4); BILIRUBIN,TOTAL 0.5 mg/dL (0.2-1.3); BLOOD UREA NITROGEN 16 mg/dL (7-20); CARBON DIOXIDE 28 mmol/L (22-30); CHLORIDE 105 mmol/L (98-107); CHOLESTEROL 119.73 mg/dL (0-200); CREATININE RESULT 1.32 mg/dL (0.52-1.25); Direct HDL 59 mg/dL (>40); GLUCOSE 99 mg/dL (75-110); POTASSIUM 4.4 mmol/L (3.6-5.0); SODIUM 142.6 mmol/L (137-145); TOTAL PROTEIN 6.6 g/dL (6.3-8.2); TRIGLYCERIDES 66 mg/dL (<150)
[2017-01-19 08:57] LABS: DIRECT LDL 33 mg/dL (<100)
== END ==
LOC: OD 07:15
PROVIDERS: ATTEND Family Medicine Geriatric Medicine
DX: R73.9 Hyperglycemia, unspecified (principal); E78.5 Hyperlipidemia, unspecified; I12.9 Hypertensive chronic kidney disease with stage 1 through stage 4 chronic kidney disease, or unspecified chronic kidney disease; N18.3 Chronic kidney disease, stage 3 (moderate); Z79.899 Other long term (current) drug therapy
CPT/HCPCS: 36415; 80053; 80061; 82306; 83036; 84443; 85025

== ENCOUNTER → 2017-01-31 | Outpatient (CLI) | payer MEDICARE ==
--- NOTE | 2017-01-31 09:17 | RADIOLOGY REPORT (SQ) ---
EXAM DESCRIPTION: HAND RIGHT 3 VIEWS COMPLETED DATE/TIME: 01/31/2017 8:28 am REASON FOR STUDY: PAIN IN RT HAND/WRIST Z79.899 OTHER SKILLED NURSING (CURRENT) DRUG THERAPY M79.641 KIKI N IN RIGHT HAND M25.531 PAIN IN RIGHT WRIST COMPARISON: None. EXAM PARAMETERS: NUMBER OF VIEWS: Three views. TECHNIQUE: AP, lateral and oblique radiographic images acquired of the right hand. LIMITATIONS: None. FINDINGS: MINERALIZATION: Normal. BONES: No acute fracture or dislocation. Mild irregularity of the 5th metacarpal, presumably related to old fracture. No worrisome bone lesions. JOINTS: Degenerative changes in the interphalangeal joint of the thumb with sclerosis and osteophytes . SOFT TISSUES: No soft tissue swelling. No foreign body. OTHER: No other significant finding. IMPRESSION: PROBABLE OLD FRACTURE OF THE 5TH METACARPAL. DEGENERATIVE CHANGE IN THE INTERPHALANGEAL JOINT OF THE THUMB. NO OTHER SIGNIFICANT FINDINGS. TECHNICAL DOCUMENTATION: JOB ID: [id number] [employer]- All Rights Reserved
--- NOTE | 2017-01-31 09:20 | RADIOLOGY REPORT (SQ) ---
EXAM DESCRIPTION: WRIST RIGHT 3 VIEWS COMPLETED DATE/TIME: 01/31/2017 8:28 am REASON FOR STUDY: RIGHT HAND/WRIST PAIN Z79.899 OTHER PENITENTIARY (CURRENT) DRUG THERAPY M79.641 KIKI N IN RIGHT HAND M25.531 PAIN IN RIGHT WRIST COMPARISON: None. NUMBER OF VIEWS: Three views. TECHNIQUE: AP, lateral, and oblique radiographic images acquired of the right wrist. LIMITATIONS: None. FINDINGS: MINERALIZATION: Normal. BONES: No acute fracture or dislocation. Mild cystic changes, most pronounced in the lunate. Indist inct demineralization on the dorsal surface of the hamate. Normal alignment. SOFT TISSUES: No soft tissue swelling. No foreign body. OTHER: No other significant finding. IMPRESSION: CHRONIC FINDINGS WITH MILD CYSTIC CHANGES. INDISTINCT DEMINERALIZATION ON THE DORSAL CHANCE RFACE OF THE HAMATE WITH INDISTINCT APPEARANCE OF THE DORSAL CORTEX. RECOMMEND FOLLOWUP MRI OF THE W RIST. TECHNICAL DOCUMENTATION: JOB ID: [id number] [employer]- All Rights Reserved
[2017-01-31 09:37] LABS: ANION GAP 9 (5-19); BLOOD UREA NITROGEN 19 mg/dL (7-20); CALCIUM 9.2 mg/dL (8.4-10.2); CARBON DIOXIDE 32 mmol/L (22-30); CHLORIDE 102 mmol/L (98-107); CREATININE RESULT 1.45 mg/dL (0.52-1.25); GLUCOSE 92 mg/dL (75-110); POTASSIUM 4.5 mmol/L (3.6-5.0); SODIUM 142.9 mmol/L (137-145)
== END ==
LOC: OD 07:48
PROVIDERS: ATTEND Family Medicine Geriatric Medicine
DX: M79.641 Pain in right hand (principal); M25.531 Pain in right wrist; Z79.899 Other long term (current) drug therapy
CPT/HCPCS: 36415; 80048; 84550

== ENCOUNTER → 2017-02-02 | Outpatient (CLI) | payer MEDICARE ==
--- NOTE | 2017-02-02 09:06 | RADIOLOGY REPORT (SQ) ---
EXAM DESCRIPTION: CT RT UPPER EXTREMITY WITHOUT COMPLETED DATE/TIME: 02/02/2017 7:36 am REASON FOR STUDY: ABN WRIST XRAY (R93.7) R93.7 ABNORMAL FINDINGS ON DIAGNOSTIC IMAGING OF PRT MS CHRIS S COMPARISON: Right wrist films 01/31/2017, right hand films 01/31/2017 TECHNIQUE: Axial imaging performed through the right wrist with reformatted coronal and sagittal monie ging windowed for bone and soft tissues. Images saved to PACS. 3D IMAGING: Were 3D images as MIP, SSD, or volume rendering performed at the work station? Yes. All CT scanners at this facility use dose modulation, iterative reconstruction, and/or weight based d osing when appropriate to reduce radiation dose to as low as reasonably achievable (ALARA). [facility]: Dose Right [facility]: CareDose [facility]: Dose Right [facility]: Teradose 4D [facility]: [employer] LIMITATIONS: None. RADIATION DOSE: Up-to-date CT equipment and radiation dose reduction techniques were employed. CTDIv ol: 4.6 mGy. DLP: 103 mGy-cm. mGy. FINDINGS: SOFT TISSUES: Atherosclerotic radial and ulnar artery calcification. No focal soft tissue swelling. No gross tendon sheath fluid. BONES: Osteopenic. No acute fracture. Osteoarthritis in the intercarpal joints with small subcortic al cyst in the scapholunate capitate and hamate bones. MINERALIZATION: There is some periarticular decrease in bone density in a bandlike distribution along the distal radi us and ulna, and in the metacarpals. This raises a question of reflex sympathetic dystrophy. OTHER: No other significant finding. IMPRESSION: No acute fracture. 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 No aggressive hamate bone demineralization worrisome for osteomyelitis There is subtle periarticular decrease in bone density particularly along the distal radius and ulna, which raises the question of reflex sympathetic dystrophy TECHNICAL DOCUMENTATION: JOB ID: [id number] Quality ID # [id number]: Final reports with documentation of one or more dose reduction techniques (e.g., Au tomated exposure control, adjustment of the mA and/or kV according to patient size, use of iterative reconstruction technique) 2010 [employer]- All Rights Reserved
== END ==
LOC: RAD 06:55
PROVIDERS: ATTEND Family Medicine Geriatric Medicine
DX: R93.7 Abnormal findings on diagnostic imaging of other parts of musculoskeletal system (principal)

== ENCOUNTER → 2017-03-14 | Outpatient (CLI) | payer MEDICARE ==
[2017-03-14 08:38] LABS: ANION GAP 8 (5-19); BLOOD UREA NITROGEN 23 mg/dL (7-20); CALCIUM 9.4 mg/dL (8.4-10.2); CARBON DIOXIDE 31 mmol/L (22-30); CHLORIDE 103 mmol/L (98-107); CREATININE RESULT 1.48 mg/dL (0.52-1.25); GLUCOSE 91 mg/dL (75-110); POTASSIUM 4.7 mmol/L (3.6-5.0); SODIUM 141.9 mmol/L (137-145); URIC ACID 4.5 mg/dL (3.5-8.5)
== END ==
LOC: OD 07:10
PROVIDERS: ATTEND Family Medicine Geriatric Medicine
DX: M10.9 Gout, unspecified (principal)
CPT/HCPCS: 36415; 80048; 84550

== ENCOUNTER → 2017-07-21 | Outpatient (CLI) | payer MEDICARE ==
[2017-07-21 08:16] LABS: ABSOLUTE BASOPHILS # (AUTO) 0.1 10^3/uL (0.0-0.2); ABSOLUTE EOSINOPHILS # (AUTO) 0.4 10^3/uL (0.0-0.6); ABSOLUTE LYMPHOCYTES (AUTO) 1.7 10^3/uL (0.5-4.7); ABSOLUTE MONOCYTES (AUTO) 0.5 10^3/uL (0.1-1.4); ABSOLUTE NEUT (AUTO) 4.6 10^3/uL (1.7-8.2); BASOPHILS % (AUTO) 1.3 % (0-2); HEMATOCRIT 46.1 % (37.9-51.0); HEMOGLOBIN 14.6 g/dL (13.5-17.0); LYMPHOCYTES % (AUTO) 23.4 % (13-45); MEAN CORPUSCULAR HEMOGLOBIN 26.4 pg (27.0-33.4); MEAN CORPUSCULAR HGB CONC 31.6 g/dL (32.0-36.0); MEAN CORPUSCULAR VOLUME 84 fl (80-97); MONOCYTES % (AUTO) 6.9 % (3-13); PLATELET COUNT 142 10^3/uL (150-450); RED BLOOD COUNT 5.51 10^6/uL (4.35-5.55); SEGMENTED NEUTROPHILS % (AUTO) 62.4 % (42-78); TOTAL CELLS COUNTED % (AUTO) 100 %; WHITE BLOOD COUNT 7.3 10^3/uL (4.0-10.5)
[2017-07-21 08:45] LABS: ANION GAP 7 (5-19); BLOOD UREA NITROGEN 18 mg/dL (7-20); CALCIUM 9.5 mg/dL (8.4-10.2); CARBON DIOXIDE 34 mmol/L (22-30); CHLORIDE 101 mmol/L (98-107); GLUCOSE 96 mg/dL (75-110); POTASSIUM 4.3 mmol/L (3.6-5.0); SODIUM 142.3 mmol/L (137-145)
== END ==
LOC: OD 07:06
PROVIDERS: ATTEND Family Medicine Geriatric Medicine
DX: D69.6 Thrombocytopenia, unspecified (principal); I10 Essential (primary) hypertension; Z79.899 Other long term (current) drug therapy
CPT/HCPCS: 36415; 80048; 85025

== ENCOUNTER → 2017-10-14 | Outpatient (CLI) | payer MEDICARE ==
[2017-10-14 08:16] LABS: ABSOLUTE BASOPHILS # (AUTO) 0.1 10^3/uL (0.0-0.2); ABSOLUTE EOSINOPHILS # (AUTO) 0.2 10^3/uL (0.0-0.6); ABSOLUTE LYMPHOCYTES (AUTO) 1.3 10^3/uL (0.5-4.7); ABSOLUTE MONOCYTES (AUTO) 0.7 10^3/uL (0.1-1.4); ABSOLUTE NEUT (AUTO) 7.2 10^3/uL (1.7-8.2); BASOPHILS % (AUTO) 0.6 % (0-2); HEMATOCRIT 45.3 % (37.9-51.0); HEMOGLOBIN 14.3 g/dL (13.5-17.0); MEAN CORPUSCULAR HEMOGLOBIN 26.5 pg (27.0-33.4); MEAN CORPUSCULAR HGB CONC 31.6 g/dL (32.0-36.0); MEAN CORPUSCULAR VOLUME 84 fl (80-97); MONOCYTES % (AUTO) 7.4 % (3-13); PLATELET COUNT 172 10^3/uL (150-450); RED BLOOD COUNT 5.41 10^6/uL (4.35-5.55); TOTAL CELLS COUNTED % (AUTO) 100 %; WHITE BLOOD COUNT 9.5 10^3/uL (4.0-10.5)
[2017-10-15 10:23] LABS: ALANINE AMINOTRANSFERASE 23 U/L (21-72); ALBUMIN 3.5 g/dL (3.5-5.0); ALKALINE PHOSPHATASE 68 U/L (38-126); ANION GAP 10 (5-19); ASPARTATE AMINO TRANSFERASE 14 U/L (17-59); BILIRUBIN,DIRECT 0.3 mg/dL (0.0-0.4); BILIRUBIN,TOTAL 0.4 mg/dL (0.2-1.3); BLOOD UREA NITROGEN 17 mg/dL (7-20); CALCIUM 9.1 mg/dL (8.4-10.2); CARBON DIOXIDE 37 mmol/L (22-30); CHLORIDE 101 mmol/L (98-107); CHOLESTEROL 110.44 mg/dL (0-200); GLUCOSE 97 mg/dL (75-110); POTASSIUM 4.9 mmol/L (3.6-5.0); SODIUM 147.6 mmol/L (137-145); TOTAL PROTEIN 6.7 g/dL (6.3-8.2); TRIGLYCERIDES 48 mg/dL (<150); URIC ACID 3.8 mg/dL (3.5-8.5)
[2017-10-15 10:38] LABS: DIRECT LDL < 30 mg/dL (<100)
== END ==
LOC: OD 07:11
PROVIDERS: ATTEND Family Medicine Geriatric Medicine
DX: E78.5 Hyperlipidemia, unspecified (principal); I25.10 Atherosclerotic heart disease of native coronary artery without angina pectoris; I10 Essential (primary) hypertension; M10.9 Gout, unspecified; Z79.899 Other long term (current) drug therapy
CPT/HCPCS: 36415; 80053; 80061; 84550; 85025

== ENCOUNTER → 2017-11-18 | Outpatient (CLI) | payer MEDICARE ==
[2017-11-18 08:42] LABS: ABSOLUTE BASOPHILS # (AUTO) 0.1 10^3/uL (0.0-0.2); ABSOLUTE EOSINOPHILS # (AUTO) 0.4 10^3/uL (0.0-0.6); ABSOLUTE LYMPHOCYTES (AUTO) 1.7 10^3/uL (0.5-4.7); ABSOLUTE MONOCYTES (AUTO) 0.6 10^3/uL (0.1-1.4); ABSOLUTE NEUT (AUTO) 4.6 10^3/uL (1.7-8.2); BASOPHILS % (AUTO) 0.9 % (0-2); EOSINOPHILS % (AUTO) 4.9 % (0-6); HEMATOCRIT 45.8 % (37.9-51.0); HEMOGLOBIN 14.2 g/dL (13.5-17.0); LYMPHOCYTES % (AUTO) 23.1 % (13-45); MEAN CORPUSCULAR HEMOGLOBIN 26.2 pg (27.0-33.4); MEAN CORPUSCULAR HGB CONC 31.1 g/dL (32.0-36.0); MEAN CORPUSCULAR VOLUME 84 fl (80-97); PLATELET COUNT 140 10^3/uL (150-450); RED BLOOD COUNT 5.43 10^6/uL (4.35-5.55); RED CELL DISTRIBUTION WIDTH 17.6 % (11.5-14.0); SEGMENTED NEUTROPHILS % (AUTO) 63.1 % (42-78); TOTAL CELLS COUNTED % (AUTO) 100 %; WHITE BLOOD COUNT 7.2 10^3/uL (4.0-10.5)
[2017-11-18 09:11] LABS: ANION GAP 9 (5-19); CARBON DIOXIDE 32 mmol/L (22-30); CHLORIDE 103 mmol/L (98-107); GLUCOSE 91 mg/dL (75-110); POTASSIUM 5.3 mmol/L (3.6-5.0)
[2017-11-18 09:12] LABS: BLOOD UREA NITROGEN 14 mg/dL (7-20); CALCIUM 9.3 mg/dL (8.4-10.2)
[2017-11-22 13:37] LABS: HGB A 97.5 % (96.4-98.8); HGB A2 2.5 % (1.8-3.2); HGB SOLUBILITY RESULT Negative (Negative)
== END ==
LOC: OD 07:13
PROVIDERS: ATTEND Family Medicine Geriatric Medicine
DX: J44.9 Chronic obstructive pulmonary disease, unspecified (principal); R71.8 Other abnormality of red blood cells; I42.9 Cardiomyopathy, unspecified; E78.5 Hyperlipidemia, unspecified; Z79.899 Other long term (current) drug therapy
CPT/HCPCS: 36415; 80048; 83020; 85025

== ENCOUNTER → 2018-06-29 | Outpatient (CLI) | payer MEDICARE ==
--- NOTE | 2018-06-29 08:29 | RADIOLOGY REPORT (SQ) ---
EXAM DESCRIPTION: CHEST PA/LATERAL COMPLETED DATE/TIME: 06/29/2018 7:46 am REASON FOR STUDY: PNEUMONIA COMPARISON: 09/13/2016 EXAM PARAMETERS: NUMBER OF VIEWS: two views TECHNIQUE: Digital Frontal and Lateral radiographic views of the chest acquired. RADIATION DOSE: NA LIMITATIONS: none FINDINGS: LUNGS AND PLEURA: Stable chronic scarring or atelectasis at the lung bases. As best note d on the lateral image, slight to mild increase parenchymal density in the mid lung zone, may represe nt infiltrate. No pneumothorax or pleural effusion. MEDIASTINUM AND HILAR STRUCTURES: No masses or contour abnormalities. HEART AND VASCULAR STRUCTURES: Heart normal size. Marked tortuous uncoiled thoracic aorta, stable fi nding. No evidence for failure. BONES: No acute findings. HARDWARE: None in the chest. OTHER: No other significant finding. IMPRESSION: 1. As best noted on the lateral image, slight to mild increase parenchymal density in t he mid lung zone, may represent infiltrate. TECHNICAL DOCUMENTATION: JOB ID: [id number] [employer]- All Rights Reserved Reading location - IP/workstation name: [email or web address]
== END ==
LOC: OD 07:17
PROVIDERS: ATTEND Internal Medicine
DX: J18.9 Pneumonia, unspecified organism (principal)
CPT/HCPCS: 71046

== ENCOUNTER → 2018-09-18 | Outpatient (CLI) | payer MEDICARE ==
[2018-09-18 07:40] LABS: ABSOLUTE BASOPHILS # (AUTO) 0.1 10^3/uL (0.0-0.2); ABSOLUTE EOSINOPHILS # (AUTO) 0.2 10^3/uL (0.0-0.6); ABSOLUTE LYMPHOCYTES (AUTO) 2.2 10^3/uL (0.5-4.7); ABSOLUTE MONOCYTES (AUTO) 0.9 10^3/uL (0.1-1.4); ABSOLUTE NEUT (AUTO) 11.4 10^3/uL (1.7-8.2); BASOPHILS % (AUTO) 0.7 % (0-2); EOSINOPHILS % (AUTO) 1.3 % (0-6); HEMATOCRIT 43.3 % (37.9-51.0); HEMOGLOBIN 13.6 g/dL (13.5-17.0); LYMPHOCYTES % (AUTO) 14.6 % (13-45); MEAN CORPUSCULAR HEMOGLOBIN 26.5 pg (27.0-33.4); MEAN CORPUSCULAR HGB CONC 31.4 g/dL (32.0-36.0); MEAN CORPUSCULAR VOLUME 84 fl (80-97); MONOCYTES % (AUTO) 6.2 % (3-13); PLATELET COUNT 120 10^3/uL (150-450); RED BLOOD COUNT 5.14 10^6/uL (4.35-5.55); SEGMENTED NEUTROPHILS % (AUTO) 77.2 % (42-78); TOTAL CELLS COUNTED % (AUTO) 100 %; WHITE BLOOD COUNT 14.8 10^3/uL (4.0-10.5)
[2018-09-18 08:09] LABS: ANION GAP 5 (5-19); BLOOD UREA NITROGEN 35 mg/dL (7-20); CALCIUM 9.4 mg/dL (8.4-10.2); CARBON DIOXIDE 35 mmol/L (22-30); CHLORIDE 97 mmol/L (98-107); GLUCOSE 88 mg/dL (75-110); POTASSIUM 4.7 mmol/L (3.6-5.0); SODIUM 137.4 mmol/L (137-145)
--- NOTE | 2018-09-18 12:38 | RADIOLOGY REPORT (SQ) ---
EXAM DESCRIPTION: CHEST PA/LATERAL COMPLETED DATE/TIME: 09/18/2018 7:51 am REASON FOR STUDY: PNEUMONIA, UNSPECIFIED ORGANISM COMPARISON: 06/29/2018 EXAM PARAMETERS: NUMBER OF VIEWS: two views TECHNIQUE: Digital Frontal and Lateral radiographic views of the chest acquired. RADIATION DOSE: NA LIMITATIONS: none FINDINGS: LUNGS AND PLEURA: No opacities, masses or pneumothorax. No pleural effusion. MEDIASTINUM AND HILAR STRUCTURES: No masses or contour abnormalities. HEART AND VASCULAR STRUCTURES: Normal size heart. Ectatic aorta. BONES: No acute findings. HARDWARE: None in the chest. OTHER: No other significant finding. IMPRESSION: Clearing of the pneumonia. No acute pulmonary disease. TECHNICAL DOCUMENTATION: JOB ID: [id number] [employer]- All Rights Reserved Reading location - IP/workstation name: [email or web address]
== END ==
LOC: OD 07:13
PROVIDERS: ATTEND Internal Medicine
DX: J18.9 Pneumonia, unspecified organism (principal); N19 Unspecified kidney failure; D64.9 Anemia, unspecified
CPT/HCPCS: 36415; 71046; 80048; 85025

== ENCOUNTER 2018-10-25 15:42 | Inpatient (IN) | payer MEDICARE ==
[2018-10-25] MEDS ORDERED: MAGNESIUM SULFATE/D5W 1 GM/100 ML RTUPB IV ONE ×3 (17:20→19:45)
[2018-10-25] MEDS ORDERED: IPRATROPIUM/ALBUTEROL 0.5-2.5 MG/3 ML AMPUL NEB ONE ×2 (17:20→19:15)
[2018-10-25] MEDS ORDERED: METHYLPREDNISOLONE INJ 125 MG/2 ML SDV IV ONE (17:20)
--- NOTE | 2018-10-25 17:49 | ER Document Report ---
ED Medical Screen (RME) - General Chief Complaint: shorntess of breath Stated Complaint: SHORTNESS OF BREATH Time Seen by Provider: 10/25/18 17:12 Primary Care Provider: SONIA SYED MD [Primary Care Provider] - Follow up as needed TRAVEL OUTSIDE OF THE [place] IN LAST 30 DAYS: No - HPI Notes: 10/25/18 17:48 Patient is an 78-year-old male with a history of chronic systolic and diastolic heart failure, chronic kidney disease stage III, hypertension, hyperlipidemia, COPD, pulmonary hypertension, moderate mitral regurgitation, moderate aortic regurgitation who presents the emergency department complaining of increasing shortness of breath and dyspnea on exertion over the past week with increased fluid buildup in his legs. Patient is not oxygen dependent with his COPD. Patient was seen by his primary care provider, Dr. Syed who wanted him seen for evaluation and probable admission. Patient states that he otherwise feels well and has been eating and drinking without difficulties. He is urinating normally and having normal bowel movements. Denies GARCIA, fever, neck pain, URI, CP, Abd pain, or rash. I have treated and performed a rapid initial assessment of this patient. A comprehensive ED assessment and evaluation of the patient, analysis of test results and completion of medical decision making process will be conducted by additional ED providers. PHYSICAL EXAMINATION: GENERAL: Well-appearing, well-nourished and in mild respiratory distress with occasional pursed lip breathing. Is watching patient's oxygen saturation fluctuate from 85 to 92% on 2 L. He was bumped to 4 L and maintain at 92-93%. A&Ox4. Answers questions appropriately. Pt made acuity level 2 and will be placed on monitor as he may end up on Bipap pending full consult with next provider. LUNGS: Diminished bilaterally with wheezes as well. HEART: Regular rate and rhythm Extremities: 2+ pitting edema bilateral lower extremities. NEUROLOGICAL: Normal speech, normal gait. PSYCH: Normal mood, normal affect. - Related Data Allergies/Adverse Reactions: No Known Allergies Allergy (Verified 10/25/18 15:48) Past Medical History - Social History Chew tobacco use (# tins/day): No Frequency of alcohol use: None Drug Abuse: None - Past Medical History Cardiac Medical History: Reports: Hx Congestive Heart Failure, Hx Coronary Artery Disease, Hx Heart Attack, Hx Hypercholesterolemia, Hx Hypertension Pulmonary Medical History: Denies: Hx Asthma, Hx Bronchitis, Hx COPD, Hx Pneumonia Neurological Medical History: Denies: Hx Cerebrovascular Accident, Hx Seizures Renal/ Medical History: Denies: Hx Peritoneal Dialysis Musculoskeltal Medical History: Denies Hx Arthritis Psychiatric Medical History: Denies: Hx Depression - Immunizations Hx Diphtheria, Pertussis, Tetanus Vaccination: Yes Physical Exam - Vital signs Vitals: Temp Pulse Resp BP Pulse Ox 98.3 F 83 20 93/58 L 91 L 10/25/18 15:53 10/25/18 15:53 10/25/18 15:53 10/25/18 15:53 10/25/18 15:53 Course - Vital Signs Vital signs: Temp Pulse Resp BP Pulse Ox 98.3 F 83 20 93/58 L 91 L 10/25/18 15:53 10/25/18 15:53 10/25/18 15:53 10/25/18 15:53 10/25/18 15:53 Doctor's Discharge - Discharge Referrals: SONIA SYED MD [Primary Care Provider] - Follow up as needed
--- NOTE | 2018-10-25 17:58 | RADIOLOGY REPORT (SQ) ---
EXAM DESCRIPTION: CHEST SINGLE VIEW COMPLETED DATE/TIME: 10/25/2018 5:44 pm REASON FOR STUDY: SOB COMPARISON: 09/18/2018 NUMBER OF VIEWS: One view. TECHNIQUE: Single frontal radiographic view of the chest acquired. LIMITATIONS: None. FINDINGS: LUNGS AND PLEURA: No opacities, masses or pneumothorax. No pleural effusion. MEDIASTINUM AND HILAR STRUCTURES: Stable contours. Ectatic uncoiled aorta. HEART AND VASCULAR STRUCTURES: Stable cardiomegaly with central vascular congestion, chronic. BONES: No acute findings. HARDWARE: None in the chest. OTHER: No other significant finding. IMPRESSION: Chronic changes. Aortic ectasia, cardiomegaly and central vascular congestion. TECHNICAL DOCUMENTATION: JOB ID: [id number] [employer]- All Rights Reserved Reading location - IP/workstation name: [email or web address]
[2018-10-25 18:51] LABS: ABSOLUTE BASOPHILS # (AUTO) 0.1 10^3/uL (0.0-0.2); ABSOLUTE EOSINOPHILS # (AUTO) 0.2 10^3/uL (0.0-0.6); ABSOLUTE LYMPHOCYTES (AUTO) 1.2 10^3/uL (0.5-4.7); ABSOLUTE MONOCYTES (AUTO) 0.8 10^3/uL (0.1-1.4); ABSOLUTE NEUT (AUTO) 6.7 10^3/uL (1.7-8.2); BASOPHILS % (AUTO) 1.1 % (0-2); EOSINOPHILS % (AUTO) 1.7 % (0-6); HEMATOCRIT 40.4 % (37.9-51.0); HEMOGLOBIN 12.8 g/dL (13.5-17.0); LYMPHOCYTES % (AUTO) 13.4 % (13-45); MEAN CORPUSCULAR HEMOGLOBIN 26.8 pg (27.0-33.4); MEAN CORPUSCULAR HGB CONC 31.7 g/dL (32.0-36.0); MEAN CORPUSCULAR VOLUME 85 fl (80-97); MONOCYTES % (AUTO) 9.3 % (3-13); PLATELET COUNT 121 10^3/uL (150-450); RED BLOOD COUNT 4.78 10^6/uL (4.35-5.55); RED CELL DISTRIBUTION WIDTH 17.8 % (11.5-14.0); SEGMENTED NEUTROPHILS % (AUTO) 74.5 % (42-78); TOTAL CELLS COUNTED % (AUTO) 100 %
[2018-10-25 19:10] LABS: ALANINE AMINOTRANSFERASE 31 U/L (21-72); ALKALINE PHOSPHATASE 55 U/L (38-126); ANION GAP 8 (5-19); ASPARTATE AMINO TRANSFERASE 21 U/L (17-59); BILIRUBIN,DIRECT 0.2 mg/dL (0.0-0.4); BILIRUBIN,TOTAL 0.6 mg/dL (0.2-1.3); BLOOD UREA NITROGEN 32 mg/dL (7-20); CALCIUM 8.4 mg/dL (8.4-10.2); CARBON DIOXIDE 33 mmol/L (22-30); CHLORIDE 94 mmol/L (98-107); GLUCOSE 87 mg/dL (75-110); POTASSIUM 4.2 mmol/L (3.6-5.0); TOTAL PROTEIN 5.9 g/dL (6.3-8.2)
[2018-10-25 21:30] LABS: APPEARANCE,URINE SLIGHTLY-CLOUDY; BILIRUBIN,URINE NEGATIVE (NEGATIVE); COLOR,URINE YELLOW; GLUCOSE, URINE NEGATIVE (NEGATIVE); KETONES,URINE NEGATIVE (NEGATIVE); LEUKOCYTE ESTERASE,URINE LARGE (NEGATIVE); NITRITE,URINE NEGATIVE (NEGATIVE); PROTEIN,URINE 100 mg/dL (NEGATIVE); URINE SPECIFIC GRAVITY 1.006; UROBILINOGEN,URINE NEGATIVE mg/dL (<2.0)
[2018-10-25] MEDS ORDERED: CEFTRIAXONE 1 GM/D5W RTU 1 GM/50 ML RTUPB IV ONE (22:04)
--- NOTE | 2018-10-25 22:06 | ER Document Report ---
ED General - General Chief Complaint: shorntess of breath Stated Complaint: SHORTNESS OF BREATH Time Seen by Provider: 10/25/18 17:12 Primary Care Provider: SONIA SYED MD [Primary Care Provider] - Follow up as needed TRAVEL OUTSIDE OF THE [place] IN LAST 30 DAYS: No - HPI Notes: Patient is an 78-year-old male presents to the emergency department for evaluation. He states his been short of breath for the last 2 to 3 weeks. Over the last week he is complained of increased swelling in his legs. He states he does not have orthopnea. He denies any paroxysmal nocturnal dyspnea. He states he has been using breathing treatments at home and is not seem to be helping ve ry much. No changes in his medications. He denies any pain of any sort. No fevers. Intermittent cough. - Related Data Allergies/Adverse Reactions: No Known Allergies Allergy (Verified 10/25/18 15:48) Past Medical History - General Information source: Patient - Social History Smoking Status: Former Smoker Chew tobacco use (# tins/day): No Frequency of alcohol use: None Drug Abuse: None Family History: CAD Patient has suicidal ideation: No Patient has homicidal ideation: No - Past Medical History Cardiac Medical History: Reports: Hx Congestive Heart Failure, Hx Coronary Artery Disease, Hx Heart Attack, Hx Hypercholesterolemia, Hx Hypertension Pulmonary Medical History: Denies: Hx Asthma, Hx Bronchitis, Hx COPD, Hx Pneumonia Neurological Medical History: Denies: Hx Cerebrovascular Accident, Hx Seizures Renal/ Medical History: Denies: Hx Peritoneal Dialysis Musculoskeletal Medical History: Denies Hx Arthritis Psychiatric Medical History: Denies: Hx Depression - Immunizations Hx Diphtheria, Pertussis, Tetanus Vaccination: Yes Review of Systems - Review of Systems Constitutional: See HPI EENT: No symptoms reported Cardiovascular: See HPI Respiratory: See HPI Gastrointestinal: No symptoms reported Genitourinary: No symptoms reported Musculoskeletal: No symptoms reported Skin: No symptoms reported Neurological/Psychological: No symptoms reported Physical Exam - Vital signs Vitals: Temp Pulse Resp BP Pulse Ox 98.3 F 83 20 93/58 L 91 L 10/25/18 15:53 10/25/18 15:53 10/25/18 15:53 10/25/18 15:53 10/25/18 15:53 - Notes Notes: Vital signs reviewed, please refer to chart. Patient is normocephalic, atraumatic. Pupils equal round, reactive to light. Neck is supple without meningismus. Heart is regular rate and rhythm. Lungs reveal markedly diminished breath sounds, scant extra Tory wheezes.. Abdomen is soft, nontender, normoactive bowel sounds throughout. Extremities without cyanosis, clubbing. 2+ pitting edema to the pretibial region. Peripheral pulses are e qual. Skin is warm and dry. Patient is awake, alert, neurological exam is nonfocal. Course - Re-evaluation Re-evalutation: 10/26/18 00:17 Patient presented to the emergency department for evaluation of shortness of breath. He has signs of both COPD as well as heart failure. My strong inclination is that this is secondary to his COPD. He was given 2 breathing treatments. He was given magnesium. He was given steroids. Chest x-ray failed to show any acute findings. His proBNP was elevated, but not significantly when compared to prior studies. ABG was ordered. He was found to be retaining CO2 and acidotic. He was placed on BiPAP. Will admit the patient for further care. - Vital Signs Vital signs: Temp Pulse Resp BP Pulse Ox 98.3 F 83 31 H 113/70 96 10/25/18 15:53 10/25/18 15:53 10/25/18 21:02 10/25/18 21:02 10/25/18 21:02 - Laboratory Result Diagrams: 10/25/18 18:21 10/25/18 18:21 Laboratory results interpreted by me: 10/25/18 10/25/18 10/25/18 18:21 18:21 18:21 Hgb 12.8 L MCH 26.8 L MCHC 31.7 L RDW 17.8 H Plt Count 121 L Carbonic Acid ABG pH ABG pCO2 ABG HCO3 ABG Total CO2 Sodium 135.0 L Chloride 94 L Carbon Dioxide 33 H BUN 32 H Creatinine 1.54 H Est GFR ( Amer) 53 L Est GFR (Non-Af Amer) 44 L NT-Pro-B Natriuret Pep 927 H Total Protein 5.9 L Albumin 3.0 L Urine Protein Urine Blood Ur Leukocyte Esterase 10/25/18 10/25/18 21:07 22:56 Hgb MCH MCHC RDW Plt Count Carbonic Acid 1.94 H ABG pH 7.30 L ABG pCO2 64.6 H ABG HCO3 30.9 H ABG Total CO2 32.9 H Sodium Chloride Carbon Dioxide BUN Creatinine Est GFR ( Amer) Est GFR (Non-Af Amer) NT-Pro-B Natriuret Pep Total Protein Albumin Urine Protein 100 H Urine Blood SMALL H Ur Leukocyte Esterase LARGE H - Diagnostic Test Radiology reviewed: Reports reviewed - Chronic changes, no acute abnormality - EKG Interpretation by Me Additional EKG results interpreted by me: 10/26/18 00:18 Sinus mechanism with a rate of 78 bpm. Left axis deviation. Right bundle branch block. No significant change when compared to prior study. Discharge - Discharge Clinical Impression: Chronic systolic CHF (congestive heart failure), NYHA class 3, Acute respiratory failure with hypoxia and hypercarbia Condition: Stable Disposition: ADMITTED INPATIENT Admitting Provider: Kike Unit Admitted: Telemetry Referrals: SONIA SYED MD [Primary Care Provider] - Follow up as needed
[2018-10-25 23:05] LABS: ARTERIAL BLOOD BASE EXCESS 2.8 mmol/L; ARTERIAL BLOOD H2CO3 1.94 mmol/L (1.05-1.35); ARTERIAL BLOOD HCO3 30.9 mmol/L (20-24); ARTERIAL BLOOD O2 SATURATION 96.5 % (94-98); ARTERIAL BLOOD PCO2 64.6 mmHg (35-45); ARTERIAL BLOOD PO2 97.2 mmHg (80-100); ARTERIAL BLOOD TOTAL CO2 32.9 mmol/L (23-27)
--- NOTE | 2018-10-25 23:07 | EKG REPORT ---
SEVERITY:- ABNORMAL ECG - ARTIFACTS SINUS RHYTHM VENTRICULAR PREMATURE COMPLEX RIGHT BUNDLE BRANCH BLOCK : Confirmed by: Vashti Crabtree 25-Oct-2018 23:07:10
[2018-10-25 23:26] LABS: ARTERIAL BLOOD FIO2 4L
[2018-10-26] MEDS ORDERED: ACETAMINOPHEN 325 MG TABLET PO PRN (07:38)
[2018-10-26] MEDS ORDERED: IPRATROPIUM/ALBUTEROL 0.5-2.5 MG/3 ML AMPUL NEB PRN (07:41)
[2018-10-26] MEDS: IPRATROPIUM/ALBUTEROL 0.5-2.5 MG/3 ML AMPUL NEB SCH ×4 (08:44→19:55)
[2018-10-26 08:58] LABS: ANION GAP 9 (5-19); BLOOD UREA NITROGEN 35 mg/dL (7-20); CALCIUM 8.8 mg/dL (8.4-10.2); CARBON DIOXIDE 31 mmol/L (22-30); CHLORIDE 97 mmol/L (98-107); CREATINE KINASE 68 U/L (55-170); GLUCOSE 144 mg/dL (75-110); SODIUM 136.9 mmol/L (137-145)
[2018-10-26 09:09] LABS: CREATINE KINASE MB 2.81 ng/mL (<4.55); TROPONIN I 0.03 ng/mL
[2018-10-26 09:11] LABS: POTASSIUM 5.2 mmol/L (3.6-5.0)
--- NOTE | 2018-10-26 09:23 | PDOC H&P ---
History of Present Illness Admission Date/PCP: 10/26/18 00:29 SONIA SYED MD Patient complains of: Shortness of breath, leg swelling History of Present Illness: RACHEL MOSQUERA is a 78 year old male Patient is an 78-year-old black male with a history of COPD, hypertension, coronary artery disease, cardiomyopathy, chronic kidney disease stage IIIa, hyperlipidemia. He presented to my office yesterday morning after gaining 13 pounds his blood pressure was controlled at the time once he arrived his O2 saturation was 74% placed on 2 L and given a nebulizer treatment at which time and up to 97% he states this is been a ongoing 2 to 3-week history of progr essive shortness of breath cough nonproductive no chest pain, palpitations some orthopnea and progressive leg swelling. He has a history of being noncompliant with diet and medication. He still intermittently smokes. Past Medical History Cardiac Medical History: Reports: Congestive Heart Failure, Coronary Artery Disease, Myocardial Infarction, Hyperlipidema, Hypertension Pulmonary Medical History: Reports: Chronic Obstructive Pulmonary Disease (COPD), Pneumonia Denies: Asthma, Bronchitis Neurological Medical History: Denies: Seizures Renal/ Medical History: Reports: Chronic Kidney Disease Musculoskeltal Medical History: Reports: Arthritis, Gout Psychiatric Medical History: Reports: Tobacco Dependency Denies: Depression Hematology: Denies: Anemia Past Surgical History Past Surgical History: Reports: None Social History Information Source: Patient Lives with: Family Smoking Status: Current Some Day Smoker Cigarettes Packs Per Day: 10 Number of Years Smokin Frequency of Alcohol Use: None Hx Recreational Drug Use: No Drugs: None Hx Prescription Drug Abuse: No Family History Family History: CAD Parental Family History Reviewed: Yes Children Family History Reviewed: Yes Sibling(s) Family History Reviewed.: Yes Medication/Allergy Home Medications: Albuterol Sulfate [Ventolin 0.042% Neb 1.25 mg/3 mL Ampul] 1 vial NEB Q6HP PRN 10/26/18 Allopurinol [Zyloprim 300 mg Tablet] 300 mg PO DAILY 10/26/18 Amlodipine Besylate [Norvasc 5 mg Tablet] 5 mg PO DAILY 10/26/18 Aspirin [Ecotrin 81 mg EC Tablet] 81 mg PO DAILY 10/26/18 Atorvastatin Calcium [Lipitor 10 mg Tablet] 10 mg PO QHS 10/26/18 Carvedilol [Coreg 25 mg Tablet] 25 mg PO Q12 10/26/18 Furosemide [Lasix 40 mg Tablet] 40 mg PO BID 10/26/18 Losartan Potassium [Cozaar 100 mg Tablet] 100 mg PO DAILY 10/26/18 Allergies/Adverse Reactions: No Known Allergies Allergy (Verified 10/25/18 15:48) Review of Systems All systems: as per PMH Constitutional: PRESENT: as per HPI Eyes: PRESENT: as per HPI Ears: PRESENT: as per HPI Nose, Mouth, and Throat: PRESENT: as per HPI Breasts: PRESENT: as per HPI Cardiovascular: PRESENT: dyspnea on exertion, edema, orthropnea Respiratory: PRESENT: cough, dyspnea Gastrointestinal: PRESENT: as per HPI Genitourinary: PRESENT: difficulty urinating, dysuria Musculoskeletal: ABSENT: joint swelling Integumentary: ABSENT: rash, wounds Neurological: ABSENT: abnormal gait, abnormal speech, confusion, dizziness, focal weakness, syncope Psychiatric: ABSENT: anxiety, depression, homidical ideation, suicidal ideation Endocrine: ABSENT: cold intolerance, heat intolerance, menstrual abnormalities, polydipsia, polyuria Hematologic/Lymphatic: ABSENT: easy bleeding, easy bruising, lymphadenopathy Physical Exam Vital Signs: Temp Pulse Resp BP Pulse Ox 97.5 F 76 18 116/90 H 100 10/26/18 08:49 10/26/18 08:49 10/26/18 08:49 10/26/18 08:49 10/26/18 08:49 Intake & Output 10/25/18 10/26/18 10/27/18 06:59 06:59 06:59 Intake Total 250 Balance 250 Weight 85.2 kg General appearance: PRESENT: mild distress, obese Head exam: PRESENT: atraumatic Eye exam: PRESENT: conjunctival injection Ear exam: PRESENT: normal external ear exam Mouth exam: PRESENT: moist, tongue midline Neck exam: PRESENT: full ROM. ABSENT: carotid bruit, JVD, lymphadenopathy, t hyromegaly Respiratory exam: PRESENT: accessory muscle use, crackles, decreased breath sounds, prolonged expiratory phas, wheezes Cardiovascular exam: PRESENT: RRR. ABSENT: diastolic murmur, rubs, systolic murmur Pulses: PRESENT: +1 pedal pulses bilateral Vascular exam: PRESENT: normal capillary refill GI/Abdominal exam: PRESENT: normal bowel sounds, soft. ABSENT: distended, guarding, mass, organolmegaly, rebound, tenderness Rectal exam: PRESENT: deferred Extremities exam: PRESENT: pedal edema Musculoskeletal exam: PRESENT: ambulatory Neurological exam: PRESENT: alert, awake, oriented to person, oriented to place, oriented to time, oriented to situation, CN II-XII grossly intact. ABSENT: motor sensory deficit Psychiatric exam: PRESENT: appropriate affect, normal mood. ABSENT: homicidal ideation, suicidal ideation Skin exam: PRESENT: dry, intact, warm. ABSENT: cyanosis, rash Results Laboratory Results: 10/25/18 18:21 10/26/18 08:18 10/25/18 10/25/18 10/25/18 18:21 18:21 21:07 WBC 9.0 RBC 4.78 Hgb 12.8 L Hct 40.4 MCV 85 MCH 26.8 L MCHC 31.7 L RDW 17.8 H Plt Count 121 L Seg Neutrophils % 74.5 Lymphocytes % 13.4 Monocytes % 9.3 Eosinophils % 1.7 Basophils % 1.1 Absolute Neutrophils 6.7 Absolute Lymphocytes 1.2 Absolute Monocytes 0.8 Absolute Eosinophils 0.2 Absolute Basophils 0.1 Carbonic Acid HCO3/H2CO3 Ratio ABG pH ABG pCO2 ABG pO2 ABG HCO3 ABG O2 Saturation ABG Base Excess FiO2 Sodium 135.0 L Potassium 4.2 Chloride 94 L Carbon Dioxide 33 H Anion Gap 8 BUN 32 H Creatinine 1.54 H Est GFR ( Amer) 53 L Est GFR (Non-Af Amer) 44 L Glucose 87 Calcium 8.4 Total Bilirubin 0.6 AST 21 ALT 31 Alkaline Phosphatase 55 Total Protein 5.9 L Albumin 3.0 L Urine Color YELLOW Urine Appearance SLIGHTLY-CLOUDY Urine pH 7.0 Ur Specific [place] 1.006 Urine Protein 100 H Urine Glucose (UA) NEGATIVE Urine Ketones NEGATIVE Urine Blood SMALL H Urine Nitrite NEGATIVE Ur Leukocyte Esterase LARGE H Urine WBC (Auto) 78 Urine RBC (Auto) 2 10/25/18 10/25/18 10/26/18 22:18 22:56 08:18 WBC RBC Hgb Hct MCV MCH MCHC RDW Plt Count Seg Neutrophils % Lymphocytes % Monocytes % Eosinophils % Basophils % Absolute Neutrophils Absolute Lymphocytes Absolute Monocytes Absolute Eosinophils Absolute Basophils Carbonic Acid Cancelled 1.94 H HCO3/H2CO3 Ratio Cancelled 15:1 ABG pH Cancelled 7.30 L ABG pCO2 Cancelled 64.6 H ABG pO2 Cancelled 97.2 ABG HCO3 Cancelled 30.9 H ABG O2 Saturation Cancelled 96.5 ABG Base Excess Cancelled 2.8 FiO2 Cancelled 4L Sodium 136.9 L Potassium 5.2 H D Chloride 97 L Carbon Dioxide 31 H Anion Gap 9 BUN 35 H Creatinine 1.36 H Est GFR ( Amer) > 60 Est GFR (Non-Af Amer) 50 L Glucose 144 H Calcium 8.8 Total Bilirubin AST ALT Alkaline Phosphatase Total Protein Albumin Urine Color Urine Appearance Urine pH Ur Specific [place] Urine Protein Urine Glucose (UA) Urine Ketones Urine Blood Urine Nitrite Ur Leukocyte Esterase Urine WBC (Auto) Urine RBC (Auto) 10/25/18 10/26/18 10/26/18 18:21 08:18 08:18 Creatine Kinase 68 CK-MB (CK-2) 2.81 Troponin I 0.030 NT-Pro-B Natriuret Pep 927 H Impressions: Chest X-Ray 10/25/18 17:19 IMPRESSION: Chronic changes. Aortic ectasia, cardiomegaly and central vascular congestion. Assessment & Plan - Diagnosis (1) Acute respiratory failure with hypoxia and hypercarbia Is this a current diagnosis for this admission?: Yes Plan: Been placed on BiPAP at 35% oxygen with an inspiratory pressure of 13 expiratory for due to his COPD, he will be given broad-spectrum IV antibiotics, he will be given short acting beta-2 agonist and inotropium p.m. nebulizer (2) COPD (chronic obstructive pulmonary disease) Qualifiers: COPD type: emphysema Emphysema type: unspecified Qualified Code(s): J43.9 - Emphysema, unspecified Is this a current diagnosis for this admission?: Yes Plan: Treatment work will be as per #1 (3) Hypertension Qualifiers: Hypertension type: essential hypertension Qualified Code(s): I10 - Essential (primary) hypertension Is this a current diagnosis for this admission?: Yes Plan: We will resume his losartan at presently and monitor his kidney function. (4) Chronic systolic CHF (congestive heart failure), NYHA class 3 Is this a current diagnosis for this admission?: Yes Plan: We will put him on losartan, Lasix we will withhold his beta-blockers due to his exacerbation of COPD, we will get an echo we will get cardiac enzymes every 6x3 (5) Chronic kidney disease, stage III (moderate) Is this a current diagnosis for this admission?: Yes Plan: We will monitor his kidney function currently he had it is at a stable point and not his best baseline (6) Urinary tract infection Qualifiers: Urinary tract infection type: acute cystitis Hematuria presence: without hematuria Qualified Code(s): N30.00 - Acute cystitis without hematuria Is this a current diagnosis for this admission?: Yes Plan: Urine shows over 100,000 gram-negative rods he is on Rocephin we will wait for sensitivities to make antibiotic stewardship and adjustments accordingly. - Time Time Spent: 50 to 70 Minutes Smoking Cessation Education: 3 to 10 minutes Medications reviewed and adjusted accordingly: Yes Anticipated discharge: Home Within: Other - Inpatient Certification Based on my medical assessment, after consideration of the patient's comorbidities, presenting symptoms, or acuity I expect that the services needed warrant INPATIENT care.: Yes I certify that my determination is in accordance with my understanding of Medicare's requirements for reasonable and necessary INPATIENT services [42 CFR 412.3e].: Yes Medical Necessity: Need for Nebulizer Therapy and Monitoring of Response, Need for IV Antibiotics, Risk of Complication if Not Cared For in Hospital Post Hospital Care: D/C Rn Clinical Documentation Specialist Documentation
--- NOTE | 2018-10-26 09:29 | EKG REPORT ---
SEVERITY:- ABNORMAL ECG - SINUS RHYTHM RIGHT BUNDLE BRANCH BLOCK : Confirmed by: Vashti Crabtree 26-Oct-2018 09:28:49
[2018-10-26] MEDS ORDERED: CEFTRIAXONE 1 GM/D5W RTU 1 GM/50 ML RTUPB IV SCH (10:00)
[2018-10-26] MEDS ORDERED: POTASSIUM CHLORIDE 10 MEQ CAPSULE.ER PO SCH (10:00)
[2018-10-26] MEDS: FUROSEMIDE INJ/PF 40 MG/4 ML SDV IV SCH ×2 (10:17→21:26)
[2018-10-26] MEDS: ROFLUMILAST 500 MCG TABLET PO SCH (10:17)
[2018-10-26] MEDS: GUAIFENESIN 600 MG TABLET.SA PO SCH ×2 (10:17→21:26)
[2018-10-26] MEDS: LOSARTAN POTASSIUM 50 MG TABLET PO SCH (10:17)
[2018-10-26] MEDS: ENOXAPARIN SODIUM INJ 30 MG/0.3 ML DISP.SYRIN SUBCUT SCH (10:18)
[2018-10-26] MEDS: METHYLPREDNISOLONE INJ 40 MG/1 ML SDV IV SCH ×2 (10:18→17:21)
[2018-10-26] MEDS ORDERED: METHYLPREDNISOLONE INJ 40 MG/1 ML SDV IV SCH (14:00)
--- NOTE | 2018-10-26 19:18 | XCELERA REPORT ---
[address] [address] Transthoracic Echocardiogram Report Name: RACHEL MOSQUERA Age: 78 yrs Gender: Male : 1940 Patient Status: [facility]: 10/26/2018 09:55 AM Height: 69 in Weight: 187 lb BSA: 2.0 m2 Procedure: A complete two-dimensional transthoracic echocardiogram was performed (2D, M-mode, spectral and color flow Doppler). The study was technically adequate with some images being suboptimal in quality. Reason For Study: chf Ordering Physician: SONIA SYED Performed By: Francy Ryan Interpretation Summary Left ventricular systolic function is low normal. There is mild concentric left ventricular hypertrophy. The left ventricle is grossly normal size. Wall motion cannot be accurately commented on, but no definite regional wall motion abnormalities noted. Doppler measurements suggest pseudonormalized left ventricular relaxation, which is associated with grade II/IV or mild to moderate diastolic dysfunction The right ventricle is mildly dilated. The right ventricular systolic function is borderline reduced. The right atrium is mildly dilated. The left atrial size is normal. There is a trace amount of mitral regurgitation There is no mitral valve stenosis. There is a trace to mild amount of aortic regurgitation There is no aortic valve stenosis There is a trace to mild amount of tricuspid regurgitation There is servere pulmonary hypertension by echo Right ventricular systolic pressure is estimated to be elevated at >60mmHg. The aortic root is not well visualized but is probably normal size. The inferior vena cava appeared normal and decreased > 50% with respiration (RAP 5-10 mmHg) There is no pericardial effusion. MMode/2D Measurements & Calculations RVDd: 4.3 cm LVIDd: 4.6 cm FS: 31.2 % Ao root diam: 3.9 cm IVSd: 0.82 cm LVIDs: 3.1 cm EDV(Teich): 95.2 ml Ao root area: 11.9 cm2 LVPWd: 0.81 cm ESV(Teich): 39.0 ml EF(Teich): 59.1 % Doppler Measurements & Calculations MV E max blanquita: MV dec slope: Ao V2 max: AI max blanquita: 97.0 cm/sec 401.3 cm/sec2 154.0 cm/sec 395.1 cm/sec MV A max blanquita: MV dec time: Ao max PG: AI max P.4 mmHg 118.9 cm/sec 0.24 sec 9.5 mmHg AI dec slope: MV E/A: 0.82 274.9 cm/sec2 AI P1/2t: 421.0 msec LV V1 max PG: PA V2 max: TR max blanquita: 4.4 mmHg 111.6 cm/sec 410.5 cm/sec LV V1 max: PA max P.0 mmHg TR max P.9 cm/sec 67.4 mmHg Left Ventricle The left ventricle is grossly normal size. There is mild concentric left ventricular hypertrophy. Left ventricular systolic function is low normal. Doppler measurements suggest pseudonormalized left ventricular relaxation, which is associated with grade II/IV or mild to moderate diastolic dysfunction. Wall motion cannot be accurately commented on, but no definite regional wall motion abnormalities noted. Right Ventricle The right ventricle is mildly dilated. The right ventricle appears to be hypertrophied. The right ventricular systolic function is borderline reduced. Atria The right atrium is mildly dilated. The left atrial size is normal. Interarterial septum not well visualized and not well dopplered. Cannot comment on ASD/PFO presence. Mitral Valve The mitral valve is grossly normal. There is no mitral valve stenosis. There is a trace amount of mitral regurgitation. Aortic Valve The aortic valve is grossly normal. There is no aortic valve stenosis. There is a trace to mild amount of aortic regurgitation. Tricuspid Valve The tricuspid valve is not well visualized, but is grossly normal. There is no tricuspid stenosis. There is a trace to mild amount of tricuspid regurgitation. There is servere pulmonary hypertension by echo. Right ventricular systolic pressure is estimated to be elevated at >60mmHg. Pulmonic Valve The pulmonic valve is not well visualized. Great Vessels The aortic root is not well visualized but is probably normal size. The inferior vena cava appeared normal and decreased > 50% with respiration (RAP 5-10 mmHg). Effusions There is no pericardial effusion. : SONIA SYED > Vashti Crabtree
[2018-10-26] MEDS ORDERED: CEFTRIAXONE SODIUM 1,000 MG in DEXTROSE 5%-WATER 50 ML IV SCH (22:00)
[2018-10-27] MEDS: METHYLPREDNISOLONE INJ 40 MG/1 ML SDV IV SCH ×3 (02:27→17:21)
[2018-10-27] MEDS: IPRATROPIUM/ALBUTEROL 0.5-2.5 MG/3 ML AMPUL NEB SCH ×4 (08:13→19:50)
--- NOTE | 2018-10-27 09:21 | PDOC PROGRESS REPORT ---
Subjective Progress Note for:: 10/27/18 Subjective:: Patient is sitting up having breakfast off oxygen he has not required BiPAP. He is still short of breath though some improvement intermittent cough nonproductive no fever no chills no chest pain or palpitations. His lab test are still pending this morning. Reason For Visit: COPD EXACERBATION Physical Exam Vital Signs: Temp Pulse Resp BP Pulse Ox 97.5 F 76 20 102/78 98 10/26/18 23:18 10/27/18 02:00 10/26/18 23:18 10/26/18 23:18 10/26/18 23:18 Intake & Output 10/26/18 10/27/18 10/28/18 06:59 06:59 06:59 Intake Total 250 1500 Balance 250 1500 Weight 85.2 kg 86.2 kg General appearance: PRESENT: mild distress, obese Head exam: PRESENT: atraumatic, normocephalic Additional Comments: Cushingoid appearance Eye exam: PRESENT: conjunctiva pink, EOMI, PERRLA. ABSENT: scleral icterus Ear exam: PRESENT: normal external ear exam Mouth exam: PRESENT: moist, tongue midline Throat exam: PRESENT: post pharyngeal erythema Neck exam: PRESENT: full ROM. ABSENT: carotid bruit, JVD, lymphadenopathy, thyromegaly Respiratory exam: PRESENT: decreased breath sounds, rhonchi, wheezes Cardiovascular exam: PRESENT: RRR. ABSENT: diastolic murmur, rubs, systolic murmur Pulses: PRESENT: +1 pedal pulses bilateral Vascular exam: PRESENT: normal capillary refill GI/Abdominal exam: PRESENT: normal bowel sounds, soft. ABSENT: distended, guarding, mass, organolmegaly, rebound, tenderness Rectal exam: PRESENT: deferred Extremities exam: PRESENT: full ROM Additional comments: 1-2+ edema to the mid tibial bilaterally Neurological exam: PRESENT: alert, awake, oriented to person, oriented to place, oriented to time, oriented to situation, CN II-XII grossly intact. ABSENT: motor sensory deficit Psychiatric exam: PRESENT: appropriate affect, normal mood. ABSENT: homicidal ideation, suicidal ideation Skin exam: PRESENT: dry, intact, warm. ABSENT: cyanosis, rash Results Laboratory Results: 10/25/18 18:21 10/25/18 21:07 Clean Catch Midstream Urine Culture - Final Enterobacter Cloacae 05/07/1510/26/18 10/26/18 18:21 08:18 08:18 Creatine Kinase 68 CK-MB (CK-2) 2.81 Troponin I 0.030 NT-Pro-B Natriuret Pep 927 H Impressions: Chest X-Ray 10/25/18 17:19 IMPRESSION: Chronic changes. Aortic ectasia, cardiomegaly and central vascular congestion. Assessment & Plan - Diagnosis (1) Acute respiratory failure with hypoxia and hypercarbia Is this a current diagnosis for this admission?: Yes Plan: Continue supplemental oxygen, Daliresp long-acting beta-2 agonist we will add flutter valve. (2) COPD (chronic obstructive pulmonary disease) Qualifiers: COPD type: emphysema Emphysema type: unspecified Qualified Code(s): J43.9 - Emphysema, unspecified Is this a current diagnosis for this admission?: Yes Plan: #1 (3) Hypertension Qualifiers: Hypertension type: essential hypertension Qualified Code(s): I10 - Essential (primary) hypertension Is this a current diagnosis for this admission?: Yes Plan: Plan we will add carvedilol 3.125 p.o. twice daily (4) Chronic systolic CHF (congestive heart failure), NYHA class 3 Is this a current diagnosis for this admission?: Yes (5) Chronic kidney disease, stage III (moderate) Is this a current diagnosis for this admission?: Yes Plan: Continuing to diurese we will monitor his BUN and creatinine and his CO2 and his potassium. (6) Urinary tract infection Qualifiers: Urinary tract infection type: acute cystitis Hematuria presence: without hematuria Qualified Code(s): N30.00 - Acute cystitis without hematuria Is this a current diagnosis for this admission?: Yes Plan: Add Invanz 1 g IV daily await Enterobacter cultures. - Time Time Spent with patient: 15-24 minutes Smoking Cessation Education: 3 to 10 minutes Medications reviewed and adjusted accordingly: Yes Anticipated discharge: Home, Other Within: Other - Inpatient Certification Based on my medical assessment, after consideration of the patient's comorbidities, presenting symptoms, or acuity I expect that the services needed warrant INPATIENT care.: Yes I certify that my determination is in accordance with my understanding of Medicare's requirements for reasonable and necessary INPATIENT services [42 CFR 412.3e].: Yes Medical Necessity: Need for Nebulizer Therapy and Monitoring of Response, Need for IV Antibiotics Post Hospital Care: D/C Acetaldehyde Converter Operator Documentation
[2018-10-27] MEDS ORDERED: ERTAPENEM SODIUM INJ 1 GM VIAL IV ONE (09:24)
[2018-10-27 09:43] LABS: ANION GAP 8 (5-19); BLOOD UREA NITROGEN 36 mg/dL (7-20); CALCIUM 8.7 mg/dL (8.4-10.2); CARBON DIOXIDE 32 mmol/L (22-30); CHLORIDE 95 mmol/L (98-107); GLUCOSE 181 mg/dL (75-110); POTASSIUM 4.6 mmol/L (3.6-5.0); SODIUM 134.6 mmol/L (137-145)
[2018-10-27] MEDS: GUAIFENESIN 600 MG TABLET.SA PO SCH ×2 (10:49→21:54)
[2018-10-27] MEDS: CARVEDILOL 3.125 MG TABLET PO SCH ×2 (10:49→21:54)
[2018-10-27] MEDS: LOSARTAN POTASSIUM 50 MG TABLET PO SCH (10:49)
[2018-10-27] MEDS: FUROSEMIDE INJ/PF 40 MG/4 ML SDV IV SCH ×2 (10:50→21:53)
[2018-10-27] MEDS: ROFLUMILAST 500 MCG TABLET PO SCH (10:50)
[2018-10-27] MEDS: ENOXAPARIN SODIUM INJ 30 MG/0.3 ML DISP.SYRIN SUBCUT SCH (10:51)
[2018-10-27] MEDS ORDERED: ERTAPENEM SODIUM 1 GM in NORMAL SALINE 50 ML IV SCH (12:00)
[2018-10-28] MEDS: METHYLPREDNISOLONE INJ 40 MG/1 ML SDV IV SCH (02:56)
[2018-10-28] MEDS: IPRATROPIUM/ALBUTEROL 0.5-2.5 MG/3 ML AMPUL NEB SCH ×4 (08:01→19:33)
--- NOTE | 2018-10-28 08:25 | PDOC PROGRESS REPORT ---
Subjective Progress Note for:: 10/28/18 Subjective:: The patient states to feel much better. His swelling in the lower extremities have improved. He is still short of breath with exertion. His O2 saturation on nasal cannula is above 90%. He has not used his CPAP Reason For Visit: COPD EXACERBATION Physical Exam Vital Signs: Temp Pulse Resp BP Pulse Ox 98.2 F 76 18 138/84 H 99 10/28/18 00:37 10/28/18 05:45 10/28/18 05:45 10/28/18 05:45 10/28/18 05:45 Intake & Output 10/27/18 10/28/18 10/29/18 06:59 06:59 06:59 Intake Total 1500 1280 Output Total 1450 Balance 1500 -170 Weight 86.2 kg 86.2 kg General appearance: PRESENT: mild distress Head exam: PRESENT: atraumatic Eye exam: PRESENT: conjunctiva pink Mouth exam: PRESENT: dry mucosa Neck exam: PRESENT: carotid bruit. ABSENT: JVD Respiratory exam: PRESENT: rhonchi, wheezes Cardiovascular exam: PRESENT: RRR, +S1, +S2 GI/Abdominal exam: PRESENT: normal bowel sounds, soft Extremities exam: PRESENT: pedal edema Musculoskeletal exam: PRESENT: ambulatory Neurological exam: PRESENT: alert, awake Results Laboratory Results: 10/25/18 18:21 10/27/18 09:08 10/27/18 09:08 Sodium 134.6 L Potassium 4.6 Chloride 95 L Carbon Dioxide 32 H Anion Gap 8 BUN 36 H Creatinine 1.34 H Est GFR ( Amer) > 60 Est GFR (Non-Af Amer) 51 L Glucose 181 H Calcium 8.7 10/25/18 21:07 Clean Catch Midstream Urine Culture - Final Enterobacter Cloacae 10/25/18 10/26/18 10/26/18 18:21 08:18 08:18 Creatine Kinase 68 CK-MB (CK-2) 2.81 Troponin I 0.030 NT-Pro-B Natriuret Pep 927 H Impressions: Chest X-Ray 10/25/18 17:19 IMPRESSION: Chronic changes. Aortic ectasia, cardiomegaly and central vascular congestion. Assessment & Plan - Diagnosis (1) Acute respiratory failure with hypoxia and hypercarbia Is this a current diagnosis for this admission?: Yes Plan: Improving we will continue with p.o. steroids and diuretics with nebulization treatments (2) Chronic systolic CHF (congestive heart failure), NYHA class 3 Is this a current diagnosis for this admission?: Yes Plan: Continue diureses (3) Urinary tract infection Qualifiers: Urinary tract infection type: acute cystitis Hematuria presence: without hematuria Qualified Code(s): N30.00 - Acute cystitis without hematuria Is this a current diagnosis for this admission?: Yes Plan: We will switch to Levaquin p.o. (4) COPD (chronic obstructive pulmonary disease) Qualifiers: COPD type: emphysema Emphysema type: unspecified Qualified Code(s): J43.9 - Emphysema, unspecified Is this a current diagnosis for this admission?: Yes Plan: Continue steroids and neb treatments (5) Chronic kidney disease, stage III (moderate) Is this a current diagnosis for this admission?: Yes Plan: We will switch to p.o. diuretics (6) Hypertension Qualifiers: Hypertension type: essential hypertension Qualified Code(s): I10 - Essential (primary) hypertension Is this a current diagnosis for this admission?: Yes Plan: Continue current treatment
[2018-10-28 09:19] LABS: ANION GAP 6 (5-19); BLOOD UREA NITROGEN 33 mg/dL (7-20); CALCIUM 8.7 mg/dL (8.4-10.2); CARBON DIOXIDE 37 mmol/L (22-30); CHLORIDE 93 mmol/L (98-107); GLUCOSE 130 mg/dL (75-110); POTASSIUM 4.8 mmol/L (3.6-5.0); SODIUM 135.6 mmol/L (137-145)
[2018-10-28] MEDS: LOSARTAN POTASSIUM 50 MG TABLET PO SCH (10:11)
[2018-10-28] MEDS: FUROSEMIDE 40 MG TABLET PO SCH ×2 (10:11→17:37)
[2018-10-28] MEDS: CARVEDILOL 3.125 MG TABLET PO SCH ×2 (10:11→22:59)
[2018-10-28] MEDS: ROFLUMILAST 500 MCG TABLET PO SCH (10:11)
[2018-10-28] MEDS: ENOXAPARIN SODIUM INJ 30 MG/0.3 ML DISP.SYRIN SUBCUT SCH (10:11)
[2018-10-28] MEDS: PREDNISONE 20 MG TABLET PO SCH ×2 (10:11→17:37)
[2018-10-28] MEDS: GUAIFENESIN 600 MG TABLET.SA PO SCH ×2 (10:11→22:58)
[2018-10-28] MEDS: LEVOFLOXACIN 500 MG TABLET PO SCH (13:29)
--- NOTE | 2018-10-28 18:07 | RADIOLOGY REPORT (SQ) ---
EXAM DESCRIPTION: CHEST 2 VIEWS COMPLETED DATE/TIME: 10/28/2018 4:42 pm REASON FOR STUDY: sob COMPARISON: 10/25/2018 TECHNIQUE: Frontal and lateral radiographic views of the chest acquired. NUMBER OF VIEWS: Two view. LIMITATIONS: None. FINDINGS: LUNGS AND PLEURA: No pneumothorax. No acute consolidation or pleural effusion. MEDIASTINUM AND HILAR STRUCTURES: Stable. HEART AND VASCULAR STRUCTURES: Stable. BONES: No acute findings. HARDWARE: None in the chest. OTHER: No other significant finding. IMPRESSION: NO ACUTE FINDINGS. TECHNICAL DOCUMENTATION: JOB ID: [id number] [id number] 2010 [employer]- All Rights Reserved Reading location - IP/workstation name: [employer]
[2018-10-28 20:52] LABS: URINE PROTEIN 65.5 mg/dL (<12)
[2018-10-28 20:53] LABS: 24 HOUR URINE PROTEIN RESULT 1572 mg/day (42-225)
[2018-10-29 05:00] LABS: HEMATOCRIT 38.6 % (37.9-51.0); HEMOGLOBIN 12.2 g/dL (13.5-17.0); MEAN CORPUSCULAR HEMOGLOBIN 26.5 pg (27.0-33.4); MEAN CORPUSCULAR HGB CONC 31.5 g/dL (32.0-36.0); MEAN CORPUSCULAR VOLUME 84 fl (80-97); PLATELET COUNT 136 10^3/uL (150-450); RED BLOOD COUNT 4.59 10^6/uL (4.35-5.55); RED CELL DISTRIBUTION WIDTH 17.2 % (11.5-14.0)
[2018-10-29 05:28] LABS: ABSOLUTE LYMPHOCYTES# (MANUAL) 0.3 10^3/uL (0.5-4.7); ABSOLUTE MONOCYTES # (MANUAL) 0.8 10^3/uL (0.1-1.4); ABSOLUTE NEUTROPHILS# (MANUAL) 12.9 10^3/uL (1.7-8.2); BAND NEUTROPHILS % (MANUAL) 1 % (3-5); BASOPHILS % (MANUAL) 0 % (0-2); EOSINOPHILS % (MANUAL) 0 % (0-6); LYMPHOCYTES % (MANUAL) 2 % (13-45); MONOCYTES % (MANUAL) 6 % (3-13); SEGMENTED NEUTROPHILS % (MAN) 91 % (42-78); TOTAL CELLS COUNTED 100
[2018-10-29 05:29] LABS: ANISOCYTOSIS 1+; BURR CELLS SLIGHT; HYPOCHROMASIA 1+; PLATELET COMMENT DECREASED; TEAR DROP CELLS SLIGHT
[2018-10-29 05:30] LABS: OVALOCYTES 2+; SCHISTOCYTES SLIGHT
[2018-10-29 05:34] LABS: ALANINE AMINOTRANSFERASE 27 U/L (21-72); ALBUMIN 2.9 g/dL (3.5-5.0); ALKALINE PHOSPHATASE 47 U/L (38-126); ANION GAP 7 (5-19); ASPARTATE AMINO TRANSFERASE 17 U/L (17-59); BILIRUBIN,DIRECT 0.3 mg/dL (0.0-0.4); BILIRUBIN,TOTAL 0.4 mg/dL (0.2-1.3); BLOOD UREA NITROGEN 35 mg/dL (7-20); CARBON DIOXIDE 36 mmol/L (22-30); CHLORIDE 94 mmol/L (98-107); GLUCOSE 116 mg/dL (75-110); SODIUM 137.2 mmol/L (137-145); TOTAL PROTEIN 5.5 g/dL (6.3-8.2)
[2018-10-29] MEDS: IPRATROPIUM/ALBUTEROL 0.5-2.5 MG/3 ML AMPUL NEB SCH ×4 (08:49→19:44)
--- NOTE | 2018-10-29 09:47 | PDOC PROGRESS REPORT ---
Subjective Progress Note for:: 10/29/18 Subjective:: The patient states to feel better. He is able to ambulate with O2 around the room. Discussed the need to walk with physical therapy and reevaluate O2 saturation prior to discharge in order to determine whether the patient needs home O2 Reason For Visit: COPD EXACERBATION Physical Exam Vital Signs: Temp Pulse Resp BP Pulse Ox 98.0 F 72 17 120/77 97 10/29/18 04:00 10/29/18 07:00 10/29/18 04:00 10/29/18 04:00 10/29/18 04:00 Intake & Output 10/28/18 10/29/18 10/30/18 06:59 06:59 06:59 Intake Total 1280 600 Output Total 1450 400 Balance -170 200 Weight 86.2 kg 84.4 kg General appearance: PRESENT: mild distress Head exam: PRESENT: atraumatic Eye exam: PRESENT: conjunctiva pink Mouth exam: PRESENT: moist Neck exam: ABSENT: carotid bruit, JVD Respiratory exam: PRESENT: crackles, rhonchi. ABSENT: wheezes Cardiovascular exam: PRESENT: +S1, +S2 GI/Abdominal exam: PRESENT: normal bowel sounds, soft Extremities exam: PRESENT: pedal edema Musculoskeletal exam: PRESENT: full ROM Neurological exam: PRESENT: alert, awake Results Laboratory Results: 10/29/18 04:20 10/29/18 04:20 10/27/18 10/29/18 10/29/18 19:50 04:20 04:20 WBC 14.0 H RBC 4.59 Hgb 12.2 L Hct 38.6 MCV 84 MCH 26.5 L MCHC 31.5 L RDW 17.2 H Plt Count 136 L Seg Neutrophils % Not Reportable Lymphocytes % Not Reportable Monocytes % Not Reportable Eosinophils % Not Reportable Basophils % Not Reportable Absolute Neutrophils Not Reportable Absolute Lymphocytes Not Reportable Absolute Monocytes Not Reportable Absolute Eosinophils Not Reportable Absolute Basophils Not Reportable Sodium 137.2 Potassium 5.0 Chloride 94 L Carbon Dioxide 36 H Anion Gap 7 BUN 35 H Creatinine 1.22 Est GFR ( Amer) > 60 Est GFR (Non-Af Amer) 57 L Glucose 116 H Calcium 9.0 Magnesium 2.3 Total Bilirubin 0.4 AST 17 ALT 27 Alkaline Phosphatase 47 Total Protein 5.5 L Albumin 2.9 L Ur 24 Hour Volume 2400 Ur Total Protein 24 Hr 1572 H 05/01/19 05/02/19 05/02/19 18:21 08:18 08:18 Creatine Kinase 68 CK-MB (CK-2) 2.81 Troponin I 0.030 NT-Pro-B Natriuret Pep 927 H Impressions: Chest X-Ray 10/28/18 16:00 IMPRESSION: NO ACUTE FINDINGS. Assessment & Plan - Diagnosis (1) Acute respiratory failure with hypoxia and hypercarbia Is this a current diagnosis for this admission?: Yes Plan: We will obtain a blood gas. Will obtain a O2 sats with ambulation and determine whether the patient needs home O2 on discharge (2) Chronic systolic CHF (congestive heart failure), NYHA class 3 Is this a current diagnosis for this admission?: Yes Plan: We will continue with diuretics. His SARAH's are negative. (3) Urinary tract infection Qualifiers: Urinary tract infection type: acute cystitis Hematuria presence: without hematuria Qualified Code(s): N30.00 - Acute cystitis without hematuria Is this a current diagnosis for this admission?: Yes Plan: We will switch to Levaquin p.o. (4) COPD (chronic obstructive pulmonary disease) Qualifiers: COPD type: emphysema Emphysema type: unspecified Qualified Code(s): J43.9 - Emphysema, unspecified Is this a current diagnosis for this admission?: Yes Plan: We will continue with steroids and start slow weaning (5) Chronic kidney disease, stage III (moderate) Is this a current diagnosis for this admission?: Yes Plan: Stable continue current treatment (6) Hypertension Qualifiers: Hypertension type: essential hypertension Qualified Code(s): I10 - Essential (primary) hypertension Is this a current diagnosis for this admission?: Yes Plan: Continue current treatment
[2018-10-29 10:26] LABS: ARTERIAL BLOOD BASE EXCESS 9.8 mmol/L; ARTERIAL BLOOD FIO2 2L; ARTERIAL BLOOD H2CO3 1.75 mmol/L (1.05-1.35); ARTERIAL BLOOD HCO3 36.3 mmol/L (20-24); ARTERIAL BLOOD O2 SATURATION 96.5 % (94-98); ARTERIAL BLOOD PCO2 58.1 mmHg (35-45); ARTERIAL BLOOD PH 7.41 (7.35-7.45); ARTERIAL BLOOD PO2 86.6 mmHg (80-100); ARTERIAL BLOOD TOTAL CO2 38.1 mmol/L (23-27)
[2018-10-29] MEDS: FUROSEMIDE 40 MG TABLET PO SCH ×2 (11:02→17:31)
[2018-10-29] MEDS: CARVEDILOL 3.125 MG TABLET PO SCH ×2 (11:02→21:54)
[2018-10-29] MEDS: PREDNISONE 20 MG TABLET PO SCH ×2 (11:02→17:31)
[2018-10-29] MEDS: GUAIFENESIN 600 MG TABLET.SA PO SCH ×2 (11:02→21:54)
[2018-10-29] MEDS: LOSARTAN POTASSIUM 50 MG TABLET PO SCH (11:02)
[2018-10-29] MEDS: ROFLUMILAST 500 MCG TABLET PO SCH (11:02)
[2018-10-29] MEDS: ENOXAPARIN SODIUM INJ 30 MG/0.3 ML DISP.SYRIN SUBCUT SCH ×2 (11:03→11:04)
[2018-10-29] MEDS: LEVOFLOXACIN 500 MG TABLET PO SCH (12:36)
[2018-10-30] MEDS: IPRATROPIUM/ALBUTEROL 0.5-2.5 MG/3 ML AMPUL NEB SCH ×2 (07:45→12:37)
[2018-10-30] MEDS: FUROSEMIDE 40 MG TABLET PO SCH (10:02)
[2018-10-30] MEDS: PREDNISONE 20 MG TABLET PO SCH (10:02)
[2018-10-30] MEDS: GUAIFENESIN 600 MG TABLET.SA PO SCH (10:02)
[2018-10-30] MEDS: CARVEDILOL 3.125 MG TABLET PO SCH (10:02)
[2018-10-30] MEDS: LOSARTAN POTASSIUM 50 MG TABLET PO SCH (10:02)
[2018-10-30] MEDS: ROFLUMILAST 500 MCG TABLET PO SCH (10:03)
[2018-10-30] MEDS: ENOXAPARIN SODIUM INJ 30 MG/0.3 ML DISP.SYRIN SUBCUT SCH (10:13)
[2018-10-30] MEDS: LEVOFLOXACIN 500 MG TABLET PO SCH (12:30)
--- NOTE | 2018-10-30 13:25 | PDOC DISCHARGE SUMMARY ---
General - Admit/Disc Date/PCP Admission Date/Primary Care Provider: 10/26/18 00:29 SONIA SYED MD Discharge Date: 10/30/18 - Discharge Diagnosis (1) Acute respiratory failure with hypoxia and hypercarbia Is this a current diagnosis for this admission?: Yes (2) COPD (chronic obstructive pulmonary disease) Is this a current diagnosis for this admission?: Yes (3) Hypertension Is this a current diagnosis for this admission?: Yes (4) Chronic systolic CHF (congestive heart failure), NYHA class 3 Is this a current diagnosis for this admission?: Yes (5) Chronic kidney disease, stage III (moderate) Is this a current diagnosis for this admission?: Yes (6) Urinary tract infection Is this a current diagnosis for this admission?: Yes - Additional Information Discharge Diet: Cardiac Prescriptions: Carvedilol [Coreg 3.125 mg Tablet] 3.125 mg PO Q12 #60 tablet Levofloxacin [Levaquin 500 mg Tablet] 500 mg PO NOON #7 tablet Losartan Potassium [Cozaar 50 mg Tablet] 50 mg PO DAILY #30 tablet Prednisone [Deltasone 20 mg Tablet] 20 mg PO BID #20 tablet Roflumilast [Daliresp 500 Mcg Tablet] 500 mcg PO DAILY #30 tablet Home Medications: Albuterol Sulfate [Ventolin 0.042% Neb 1.25 mg/3 mL Ampul] 1 vial NEB Q6HP PRN 10/26/18 Allopurinol [Zyloprim 300 mg Tablet] 300 mg PO DAILY 10/26/18 Amlodipine Besylate [Norvasc 5 mg Tablet] 5 mg PO DAILY 10/26/18 Aspirin [Ecotrin 81 mg EC Tablet] 81 mg PO DAILY 10/26/18 Atorvastatin Calcium [Lipitor 10 mg Tablet] 10 mg PO QHS 10/26/18 Furosemide [Lasix 40 mg Tablet] 40 mg PO BID 10/26/18 Carvedilol [Coreg 3.125 mg Tablet] 3.125 mg PO Q12 #60 tablet 10/30/18 Levofloxacin [Levaquin 500 mg Tablet] 500 mg PO NOON #7 tablet 10/30/18 Losartan Potassium [Cozaar 50 mg Tablet] 50 mg PO DAILY #30 tablet 10/30/18 Prednisone [Deltasone 20 mg Tablet] 20 mg PO BID #20 tablet 10/30/18 Roflumilast [Daliresp 500 Mcg Tablet] 500 mcg PO DAILY #30 tablet 10/30/18 History of Present Illness Patient complains of: progressive SOB, and leg History of Present Illness: RACHEL MOSQUERA is a 78 year old male Patient is an 78-year-old black male with a history of COPD, hypertension, coronary artery disease, cardiomyopathy, chronic kidney disease stage IIIa, hyperlipidemia. He presented to my office yesterday morning after gaining 13 pounds his blood pressure was controlled at the time once he arrived his O2 saturation was 74% placed on 2 L and given a nebulizer treatment at which time and up to 97% he states this is been a ongoing 2 to 3-week history of progressive shortness of breath cough nonproductive no chest pain, palpitations some orthopnea and progressive leg swelling. He has a history of being noncompliant with diet and medication. He still intermittently smokes. Hospital Course Hospital Course: She comes into the hospital was put on BiPAP ventilation, IV fluids, broad- spectrum antibiotics, short acting beta-2 agonist, nebulized T ectropion, IV steroids. His serial cardiac enzymes, sputum, blood cultures were negative. Throughout his hospital course he showed improvement in his breathing with decreasing oxygen requirement to he was on 2 L maintaining over 94%. His steroids were weaned from IV to p.o. his IV antibiotics were switched to p.o. Throughout his hospitalization he was also found to have bilateral leg swelling which responded to IV Lasix most likely secondary to pulmonary hypertension. Prior to discharge he was able to ambulate the halls without assistant manager bilingual with supplemental oxygen. Physical Exam Vital Signs: Temp Pulse Resp BP Pulse Ox 97.8 F 73 16 136/92 H 98 10/30/18 07:19 10/30/18 12:37 10/30/18 12:37 10/30/18 07:19 10/30/18 12:37 Intake & Output 10/29/18 10/30/18 10/31/18 06:59 06:59 06:59 Intake Total 600 1245 Output Total 400 Balance 200 1245 Weight 84.4 kg 82.4 kg General appearance: PRESENT: no acute distress, well-developed, well-nourished Head exam: PRESENT: atraumatic, normocephalic Eye exam: PRESENT: conjunctiva pink, EOMI, PERRLA. ABSENT: scleral icterus Ear exam: PRESENT: normal external ear exam Mouth exam: PRESENT: moist, tongue midline Neck exam: PRESENT: full ROM. ABSENT: carotid bruit, JVD, lymphadenopathy, thyromegaly Respiratory exam: PRESENT: decreased breath sounds Cardiovascular exam: PRESENT: RRR. ABSENT: diastolic murmur, rubs, systolic murmur Pulses: PRESENT: +1 pedal pulses bilateral Vascular exam: PRESENT: normal capillary refill GI/Abdominal exam: PRESENT: normal bowel sounds, soft. ABSENT: distended, guarding, mass, organolmegaly, rebound, tenderness Rectal exam: PRESENT: deferred Extremities exam: PRESENT: full ROM Musculoskeletal exam: PRESENT: ambulatory Neurological exam: PRESENT: alert, awake, oriented to person, oriented to place, oriented to time, oriented to situation, CN II-XII grossly intact. ABSENT: motor sensory deficit Psychiatric exam: PRESENT: appropriate affect, normal mood. ABSENT: homicidal ideation, suicidal ideation Skin exam: PRESENT: dry, intact, warm. ABSENT: cyanosis, rash Results Laboratory Results: 10/29/18 04:20 10/29/18 04:20 10/25/18 10/26/18 10/26/18 18:21 08:18 08:18 Creatine Kinase 68 CK-MB (CK-2) 2.81 Troponin I 0.030 NT-Pro-B Natriuret Pep 927 H Impressions: Chest X-Ray 10/28/18 16:00 IMPRESSION: NO ACUTE FINDINGS. Qualifiers - * PATIENT BEING DISCHARGED WITH ANY OF THE FOLLOWING DIAGNOSIS: No Acute Heart Failure Is this a Heart Failure Patient?: Yes Documentation of LVEF assessment?: Planned for after discharge a) Discharged on ACEI?: N/A Discharged on ARB b) Discharges on ARB?: Yes d) Discharged on evidence-based Beta kisha(carvedilol, sustained release metoprolol succinate, or bisoprolol)?: Yes e) For LVEF <35%, discharged on Aldosterone antagonist?: N/A (LVEF > or = 35%) Follow-up Appointment scheduled within 7 days?: Yes Plan Discharge Plan: Prescriptions were sent to his pharmacy he will be sent home on supplemental oxygen and he will have a follow-up in 1 week Time Spent: Less than 30 Minutes
[2018-10-30 13:40] VITALS: BP 120/77
== END 2018-10-30 15:08 | disposition home or self-care (01) | DRG 189 ==
LOC: ER 15:42 → EH 10-26 00:29 → 5 10-26 02:21
PROVIDERS: ADMIT Internal Medicine; ATTEND Internal Medicine
PROC: 5A09457 Assistance with Respiratory Ventilation, 24-96 Consecutive Hours, Continuous Positive Airway Pressure (ICD-10-PCS; principal; 2018-10-26)
DX: J96.01 Acute respiratory failure with hypoxia (principal); I13.0 Hypertensive heart and chronic kidney disease with heart failure and stage 1 through stage 4 chronic kidney disease, or unspecified chronic kidney disease; I50.22 Chronic systolic (congestive) heart failure; I42.9 Cardiomyopathy, unspecified; N30.00 Acute cystitis without hematuria; J43.9 Emphysema, unspecified; J96.02 Acute respiratory failure with hypercapnia; I25.10 Atherosclerotic heart disease of native coronary artery without angina pectoris; N18.3 Chronic kidney disease, stage 3 (moderate); B96.89 Other specified bacterial agents as the cause of diseases classified elsewhere; E78.5 Hyperlipidemia, unspecified; M19.90 Unspecified osteoarthritis, unspecified site; M10.9 Gout, unspecified; F17.210 Nicotine dependence, cigarettes, uncomplicated; I25.2 Old myocardial infarction; Z79.82 Long term (current) use of aspirin; Z79.899 Other long term (current) drug therapy; Z79.51 Long term (current) use of inhaled steroids; Z82.49 Family history of ischemic heart disease and other diseases of the circulatory system
CPT/HCPCS: 36415; 36600; 71045; 71046; 80048; 80053; 81001; 82550; 82553; 82803; 83735; 83880; 84156; 84484; 85025; 87086; 87088; 87186; 93005; 93010; 93306; 94640; 94660; 94667; 94668; 96365; 96367; 96375; 99285; J0696; J1335; J1650; J1940; J2920; J2930; J3475; J7060; J7512; J7620; L1902

== ENCOUNTER 2019-02-07 07:19 | Emergency (ER) | payer MEDICARE ==
--- NOTE | 2019-02-07 07:49 | ER Document Report ---
ED Cardiac - General Stated Complaint: UNRESPONSIVE Time Seen by Provider: 02/07/19 07:28 Primary Care Provider: SONIA SYED MD [Primary Care Provider] - Follow up as needed Mode of Arrival: Carried Information source: Friend, [facility] Records Notes: This 78-year-old male patient brought to emergency room unresponsive this morning. History and reports that a neighbor called out to him as he was walking this morning to come get the patient and take him to the hospital. By history the patient complained of not feeling well. Friend reports when he got to the house, patient was unresponsive and they carried him out to the truck for a 10- minute ride to the emergency room. He remained unresponsive this entire time. When he was brought into the front door, he was found to be unresponsive and pulseless and apneic. CPR was started in the trauma bay. He was intubated with a 7.5 endotracheal tube. He was pulseless, apneic, with fixed dilated pupils. He remained pulseless, apneic, and in varying complexes of PEA rhythms. At one point he did develop ventricular fibrillation and was defibrillated. There was still no pulse. He did receive several rounds of epinephrine, and high-quality CPR for an excess of 15 minutes prior to the code being called. TRAVEL OUTSIDE OF THE [place] IN LAST 30 DAYS: No - Related Data Allergies/Adverse Reactions: No Known Allergies Allergy (Verified 01/29/19 09:20) Past Medical History - General Information source: [facility] Records - Social History Smoking Status: Unknown if Ever Smoked Family History: CAD - Past Medical History Cardiac Medical History: Reports: Hx Congestive Heart Failure, Hx Coronary Artery Disease, Hx Heart Attack, Hx Hypercholesterolemia, Hx Hypertension Pulmonary Medical History: Reports: Hx COPD, Hx Pneumonia Denies: Hx Asthma, Hx Bronchitis Neurological Medical History: Denies: Hx Cerebrovascular Accident, Hx Seizures Renal/ Medical History: Reports: Hx Renal Insufficiency. Denies: Hx Peritoneal Dialysis Musculoskeletal Medical History: Reports Hx Arthritis, Reports Hx Gout Psychiatric Medical History: Denies: Hx Depression - Immunizations Hx Diphtheria, Pertussis, Tetanus Vaccination: Yes Physical Exam - Vital signs Interpretation: Other - Pulseless, apneic - General General appearance: Unresponsive - HEENT Head: Normocephalic, Atraumatic Eyes: Other - Arcus senilis Pupils: Dilated, Fixed Pharynx: Normal Neck: Normal - Respiratory Respiratory status: Other - Apneic Breath sounds: Rhonchi, Wheezing - These breath sounds were heard only after the patient was intubated - Cardiovascular Rhythm: Other - Shunt remained in varying PEA rhythms the entire time - Abdominal Inspection: Normal - Back Back: Normal - Extremities General upper extremity: Normal inspection General lower extremity: Normal inspection - Neurological Neuro grossly intact: No Notes: unresponsive - Psychological Associated symptoms: Other - unresponsive - Skin Skin Temperature: Warm Skin Moisture: Dry Skin Color: Normal Procedures - Intubation Orotracheal Airway evaluation: Copious secretions Intubation method: Orotracheal Blade type: Miguel Breath Sounds after Intubation: Equal End tidal CO2 confirmed: Yes Post Intubation Xray: No Intubation Complications: No: No complications Notes: 02/07/19 07:48 Patient was intubated with a 7.5 endotracheal tube. Good breath sounds bilateral. Color change on the CO2 to monitor. X-ray not done, as patient was in cardiac arrest with PEA, code was called prior to any lab or radiological studies. Critical Care Note - Critical Care Note Total time excluding time spent on procedures (mins): 18 Discharge - Discharge Clinical Impression: Cardiopulmonary arrest Disposition: Referrals: SONIA SYED MD [Primary Care Provider] - Follow up as needed
[2019-02-07] MEDS ORDERED: EPINEPHRINE INJ 1 MG/10 ML DISP.SYRIN ONE (08:59)
== END 2019-02-07 12:10 | disposition expired ==
LOC: ER 07:19
DX: I46.9 Cardiac arrest, cause unspecified (principal); R41.82 Altered mental status, unspecified; I50.9 Heart failure, unspecified; I25.10 Atherosclerotic heart disease of native coronary artery without angina pectoris; E78.00 Pure hypercholesterolemia, unspecified; I11.0 Hypertensive heart disease with heart failure; I25.2 Old myocardial infarction
CPT/HCPCS: 99285; 82962; 31500; J0171